=== PATIENT | male | born 1980 | race Caucasian/White ===

== ENCOUNTER 2017-12-06 12:55 | Emergency (ER) | payer MEDICAID, SELFPAY ==
[2017-12-06 12:57] VITALS: BP 122/86; PULSE 81; RESP 16; TEMP 37.1; O2SAT 95; BMI 29.0
--- NOTE | 2017-12-06 13:09 | EKG12_ITS ---
Test Reason : CP Blood Pressure : / mmHG Vent. Rate : 081 BPM Atrial Rate : 081 BPM P-R Int : 128 ms QRS Dur : 084 ms QT Int : 360 ms P-R-T Axes : 037 058 028 degrees QTc Int : 418 ms Normal sinus rhythm with sinus arrhythmia Normal ECG Confirmed by GAETANO ROBLES ([id number]), editor managing newspaper CHELLE DORSEY ([id number]) on 12/11/2017 1:43:41 PM Referred By: EMERITA Confirmed By:GAETANO ROBLES
--- NOTE | 2017-12-06 13:09 | RAD_ITS ---
STUDY: X-RAY CHEST REASON FOR EXAM: Male, 37 years old. Acute onset of chest pain. TECHNIQUE: Single AP portable view of the chest. COMPARISON: Comparison is made with prior study dated August 14, 2015. FINDINGS: EKG electrodes are seen. Mild increase in the markings at the left lung base suggestive of underlying atelectasis. There is no demonstrated pleural abnormality. Normal size heart. Normal mediastinum and jovanna. Normal visualized pulmonary arteries. Normal visualized aortic arch and descending thoracic aorta. Normal visualized thoracic spine. Normal visualized ribs, clavicles, and shoulders. There is no demonstrated abnormality of the visualized soft tissue structures of the upper abdomen. RAD/Chest 1 View (Portable) IMPRESSION: Mild increased linear markings at the left lung base suggestive of linear atelectasis. Electronically Signed: Dixon Golden MD at 14:01 EST Tel [phone], Service support ,
[2017-12-06 13:18] LABS: Absolute Lymphocyte Count 2.63 X10^3/ul (0.83-4.51); Absolute Neutrophil Count 6.7 X10^3/uL (2.0-7.7); Basophil# 0.04 X10^3/uL; Basophil% 0.4 % (0-1); Eosinophil# 0.19 X10^3/uL; Eosinophils% 1.8 % (0-5); Hematocrit 47.4 % (40-54); Hemoglobin 16.3 g/dl (13.0-16.5); Lymphocyte # 2.63 X10^3/ul (4.0); Lymphocyte % 24.9 % (19-41); Mean Corp Hgb Conc 34.4 g/gl (32-36); Mean Corpuscular Hgb 30.9 pg (27.0-32.0); Mean Corpuscular Volume 89.9 fL (80-94); Mean Platelet Vol. 9.6 fl (6.2-12.0); Monocyte# 0.93 X10^3/uL; Monocyte% 8.8 % (0-10); Neutrophil # 6.74 X10^3/uL (2.7-7.7); Neutrophil % 63.9 % (47-70); Platelet Count 218 K/mm3 (150-450); RBC Distribution Width CV 13.6 % (11.6-14.6); Red Blood Count 5.27 M/mm3 (4.6-6.2); White Blood Count 10.6 K/mm3 (4.4-11.0)
[2017-12-06 13:19] LABS: POSITIVE COUNT NO; POSITIVE DIFFERENTIAL NO; POSITIVE MORPHOLOGY NO
--- NOTE | 2017-12-06 13:22 | ED.VISSUMM ---
- ER Visit Summary Date of Service: 12/06/17 Chief Complaint: Cough, congestion and today left chest wall pain. History of Present Illness: The patient is a 37 M head cold. Last several days. Today developed left chest wall pain. With coughing. Denies any hemoptysis. He has had body sweats and sore throat. Denies any melena. No history of DVT or PE. No risk factors. No cardiac history in himself. He does have a half a pack a day smoking history and denies any significant family history of cardiac disease or clotting disorders. He had a negative stress test years ago. He has had no recent cardiac workup. No recent hospitalization or immobilization. Denies any leg pain or swelling. Physical Examination: Well appearing young male. Vital signs are stable afebrile. Pulse ox 95% on room air no signs of hypoxia. He is in no distress. H EENT exam nasal congestion otherwise unremarkable. Neck nontender no lymphadenopathy. Lungs clear to auscultation bilaterally. Dry cough. Heart regular rate and rhythm no murmur. Chest wall is reproducible left-sided chest wall pain. There is no ecchymosis or bruising. No subcu air or crepitance. No bony deformity. Abdomen is soft and nontender. No peritoneal signs. He is moving all 4 extremities. Neurovascular intact. Equal symmetrical radial pulses. Equal symmetrical director building strength. Dorsi plantar flexion. Calves are nontender without edema or cords. Back exam normal. Neurologically is awake and alert without focal motor deficits. Test Results: Shows no acute process. Linear atelectasis. Read both by myself the radiologist. CBC normal. BMP unremarkable. Normal gap. Troponin normal. EKG sinus rhythm rate 81 no acute signs of [place] or ischemia. Emergency Department Course and Treatment: Clinically the patient appears to have a viral URI. The chest pain and think is chest wall pain. He will undergo cardiac workup and my clinical suspicion is very low. Treatment Plan: Repeat exam patient is doing well at 1528. He still has reproducible chest wall pain. Clinically and historically I do not feel this to be cardiac. He is comfortable being discharged home. Disposition: Discharge Impression: Viral URI Acute chest pain secondary to left chest wall pain Tobacco abuse This note was generated with [employer] dictation software. It may contain incorrect words, spelling, and punctuation that were not noted in review of the chart prior to signing ED Disposition - Plan for ED Patient: Chief Complaint: Chest Pain Referrals: Bernard Sin III, MD [Primary Care Provider] -
--- NOTE | 2017-12-06 13:25 | ED.DCSUM_ITS ---
- ER Visit Summary Date of Service: 12/06/17 Chief Complaint: Cough, congestion and today left chest wall pain. History of Present Illness: The patient is a 37 M head cold. Last several days. Today developed left chest wall pain. With coughing. Denies any hemoptysis. He has had body sweats and sore throat. Denies any melena. No history of DVT or PE. No risk factors. No cardiac history in himself. He does have a half a pack a day smoking history and denies any significant family history of cardiac disease or clotting disorders. He had a negative stress test years ago. He has had no recent cardiac workup. No recent hospitalization or immobilization. Denies any leg pain or swelling. Physical Examination: Well appearing young male. Vital signs are stable afebrile. Pulse ox 95% on room air no signs of hypoxia. He is in no distress. H EENT exam nasal congestion otherwise unremarkable. Neck nontender no lymphadenopathy. Lungs clear to auscultation bilaterally. Dry cough. Heart regular rate and rhythm no murmur. Chest wall is reproducible left-sided chest wall pain. There is no ecchymosis or bruising. No subcu air or crepitance. No bony deformity. Abdomen is soft and nontender. No peritoneal signs. He is moving all 4 extremities. Neurovascular intact. Equal symmetrical radial pulses. Equal symmetrical skating rink manager strength. Dorsi plantar flexion. Calves are nontender without edema or cords. Back exam normal. Neurologically is awake and alert without focal motor deficits. Test Results: Shows no acute process. Linear atelectasis. Read both by myself the radiologist. CBC normal. BMP unremarkable. Normal gap. Troponin normal. EKG sinus rhythm rate 81 no acute signs of [place] or ischemia. Emergency Department Course and Treatment: Clinically the patient appears to have a viral URI. The chest pain and think is chest wall pain. He will undergo cardiac workup and my clinical suspicion is very low. Treatment Plan: Repeat exam patient is doing well at 1528. He still has reproducible chest wall pain. Clinically and historically I do not feel this to be cardiac. He is comfortable being discharged home. Disposition: Discharge Impression: Viral URI Acute chest pain secondary to left chest wall pain Tobacco abuse This note was generated with [employer] dictation software. It may contain incorrect words, spelling, and punctuation that were not noted in review of the chart prior to signing ED Disposition - Plan for ED Patient: Chief Complaint: Chest Pain Referrals: Bernard Sin III, MD [Primary Care Provider] -
[2017-12-06 13:30] LABS: Anion Gap 7 (5-15); BUN 14 mg/dL (7-18); BUN/Creat Ratio 15.1 RATIO (10-20); Calcium,Total 8.7 mg/dL (8.5-10.1); Chloride 108 mmol/L (98-107); Creatinine, Serum 0.92 mg/dL (0.70-1.30); EST Glomerular Filtration Rate 96 mL/min (>60); Est Glom Filt Rate - Afr Amer 117 mL/min (>60); Estimated Creatinine Clearance 90.27 ml/min; Glucose 104 mg/dL (74-106); Potassium 4.4 mmol/L (3.5-5.1); Sodium Level 140 mmol/L (136-145)
[2017-12-06 14:13] VITALS: BP 126/89; PULSE 83; RESP 16; O2SAT 97
[2017-12-06 15:04] VITALS: BP 117/83; PULSE 86; RESP 20; O2SAT 97
--- NOTE | 2017-12-06 15:35 | ED.DEP ---
ED Disposition - Plan for ED Patient: Disposition: Home or Assisted Living Chief Complaint: Chest Pain Instructions: ED Strain Chest Wall, ED URI Viral Referrals: Bernard Sin III, MD [Primary Care Provider] - 1 Week if not improving Additional Instructions: Motrin and Tylenol for your chest wall pain. Stop smoking. Follow-up with your doctor if not improving in 1 week.
[2017-12-06 15:54] VITALS: BP 131/69; PULSE 72; RESP 15; O2SAT 97
== END 2017-12-06 15:55 | disposition home or self-care (01) ==
PROVIDERS: Emergency Provider Emergency Medicine; Family Provider Family Medicine; PCP Family Medicine
DX: J06.9 Acute upper respiratory infection, unspecified (principal); R07.89 Other chest pain; Z72.0 Tobacco use
CPT/HCPCS: 71045; 80048; 84484; 85025; 93005; 99285; A4216

== ENCOUNTER 2018-11-25 11:52 | Emergency (ER) | payer SELFPAY ==
[2018-11-25 11:53] VITALS: BP 120/81; PULSE 80; RESP 24; TEMP 36.4; O2SAT 98; BMI 28.3
--- NOTE | 2018-11-25 12:02 | EKG12_ITS ---
Test Reason : CP Blood Pressure : / mmHG Vent. Rate : 077 BPM Atrial Rate : 077 BPM P-R Int : 132 ms QRS Dur : 084 ms QT Int : 366 ms P-R-T Axes : 043 063 033 degrees QTc Int : 414 ms Normal sinus rhythm Normal ECG Confirmed by ALBANIA HATFIELD, THAIS ([id number]), map editor CHELLE DORSEY ([id number]) on 11/29/2018 9:00:35 AM Referred By: EMERITA/EDWARD Confirmed By:THAIS LOVELACE MD
--- NOTE | 2018-11-25 12:03 | ED.VISSUMM ---
- ER Visit Summary Date of Service: 11/25/18 Chief Complaint: Chest pain History of Present Illness: The patient is a 38 M no significant past medical history. He has had a prior negative stress test. He is never had a cardiac catheterization. He has no known history of cardiac disease. No history of hypertension or high cholesterol. His direct family parents and siblings have not had cardiac disease. He had an aunt who he thinks had an TX at 62. He does smoke. 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 He had similar symptoms a year ago had a negative cardiac workup and was discharged home. He has had no recent travel or surgery. No hospitalization or immobilization. No leg pain or swelling. Not pleuritic. No hemoptysis. The pain is almost resolved. It began around 950. Physical Examination: Well-appearing middle-age male. Vital signs are stable. He is afebrile. Initial blood pressure is 120/81. His pulse ox is 98% on room air with no hypoxia. HEENT exam is unremarkable. Neck nontender without lymphadenopathy. Trachea midline. Lungs clear to auscultation bilaterally. Heart regular rate and rhythm no murmur. Chest wall nontender. No ecchymosis or bruising. No subcu air crepitance. Abdomen is soft and nontender. Normal bowel sounds without peritoneal signs. Patient is moving all 4 extremities. Calves are nontender without edema or cords. Back exam nontender. Neurologically is awake and alert with no focal motor deficits. Test Results: CBC normal. Chemistries normal. Troponin normal. EKG sinus rhythm rate of 77 no. No signs of TX or ischemia. Chest x-ray chronic changes no acute process read both by myself and the radiologist. Emergency Department Course and Treatment: Patient will undergo cardiac workup. My clinical suspicion is low. Repeat exam patient is doing well at 1511 and be discharged to home. Treatment Plan: Follow-up with his primary care physician. Disposition: Discharge Impression: Acute chest pain uncertain etiology History of tobacco abuse This note was generated with [employer] dictation software. It may contain incorrect words, spelling, and punctuation that were not noted in review of the chart prior to signing ED Disposition - Plan for ED Patient: Referrals: Bernard Sin III, MD [Primary Care Provider] -
--- NOTE | 2018-11-25 12:06 | ED.DCSUM_ITS ---
- ER Visit Summary Date of Service: 11/25/18 Chief Complaint: Chest pain History of Present Illness: The patient is a 38 M no significant past medical history. He has had a prior negative stress test. He is never had a cardiac catheterization. He has no known history of cardiac disease. No history of hy pertension or high cholesterol. His direct family parents and siblings have not had cardiac disease. He had an aunt who he thinks had an DC at 62. He does smoke. 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 He had similar symptoms a year ago had a negative cardiac workup and was discharged home. He has had no recent travel or surgery. No hospitalization or immobilization. No leg pain or swelling. Not pleuritic. No hemoptysis. The pain is almost resolved. It began around 950. Physical Examination: Well-appearing middle-age male. Vital signs are stable. He is afebrile. Initial blood pressure is 120/81. His pulse ox is 98% on room air with no hypoxia. HEENT exam is unremarkable. Neck nontender without lymphadenopathy. Trachea midline. Lungs clear to auscultation bilaterally. Heart regular rate and rhythm no murmur. Chest wall nontender. No ecchymosis or bruising. No subcu air crepitance. Abdomen is soft and nontender. Normal bowel sounds without peritoneal signs. Patient is moving all 4 extremities. Calves are nontender without edema or cords. Back exam nontender. Neurologically is awake and alert with no focal motor deficits. Test Results: CBC normal. Chemistries normal. Troponin normal. EKG sinus rhythm rate of 77 no. No signs of DC or ischemia. Chest x-ray chronic changes no acute process read both by myself and the radiologist. Emergency Department Course and Treatment: Patient will undergo cardiac workup. My clinical suspicion is low. Repeat exam patient is doing well at 1511 and be discharged to home. Treatment Plan: Follow-up with his primary care physician. Disposition: Discharge Impression: Acute chest pain uncertain etiology History of tobacco abuse This note was generated with [employer] software. It may contain incorrect words, spelling, and punctuation that were not noted in review of the chart prior to signing ED Disposition - Plan for ED Patient: Referrals: Bernard Sin III, MD [Primary Care Provider] -
--- NOTE | 2018-11-25 12:15 | RAD_ITS ---
STUDY: X-RAY CHEST REASON FOR EXAM: Male, 38 years old. Chest pain. TECHNIQUE: Single AP portable view of the chest. COMPARISON: Comparison is made with prior study dated December 06, 2017. FINDINGS: EKG electrodes are seen. Stable mild degree of increased markings at left lung base suggestive of scarring. There is no demonstrated pleural abnormality. Normal size heart. Normal mediastinum and jovanna. Normal visualized pulmonary arteries. Normal visualized aortic arch and descending thoracic aorta. There are degenerative changes of the visualized thoracic spine. Normal visualized ribs, clavicles, and shoulders. There is no demonstrated abnormality of the visualized soft tissue structures of the upper abdomen. RAD/Chest 1 View (Portable) IMPRESSION: Stable mild increased markings at the left lung base suggestive of linear scarring. Electronically Signed: Dixon Golden MD at 12:42 EST , Service support ,
[2018-11-25 12:23] LABS: Absolute Lymphocyte Count 2.54 X10^3/ul (0.83-4.51); Absolute Neutrophil Count 7.3 X10^3/uL (2.0-7.7); Basophil# 0.03 X10^3/uL; Basophil% 0.3 % (0-1); Eosinophil# 0.09 X10^3/uL; Eosinophils% 0.8 % (0-5); Hematocrit 48.2 % (40-54); Hemoglobin 16.6 g/dl (13.0-16.5); Lymphocyte # 2.54 X10^3/ul (4.0); Lymphocyte % 23.6 % (19-41); Mean Corp Hgb Conc 34.4 g/gl (32-36); Mean Corpuscular Hgb 31.3 pg (27.0-32.0); Mean Corpuscular Volume 90.8 fL (80-94); Mean Platelet Vol. 9.1 fl (6.2-12.0); Monocyte# 0.71 X10^3/uL; Monocyte% 6.6 % (0-10); Neutrophil # 7.33 X10^3/uL (2.7-7.7); Neutrophil % 68.3 % (47-70); POSITIVE COUNT NO; POSITIVE DIFFERENTIAL NO; POSITIVE MORPHOLOGY NO; Platelet Count 207 K/mm3 (150-450); RBC Distribution Width CV 13.1 % (11.6-14.6); RBC Distribution Width SD 42.9 fl (35.1-43.9); Red Blood Count 5.31 M/mm3 (4.6-6.2); White Blood Count 10.7 K/mm3 (4.4-11.0)
[2018-11-25 12:46] LABS: Anion Gap 10 (5-15); BUN 12 mg/dL (7-18); BUN/Creat Ratio 11.9 RATIO (10-20); Calcium,Total 8.7 mg/dL (8.5-10.1); Chloride 105 mmol/L (98-107); Creatinine, Serum 1.01 mg/dL (0.70-1.30); EST Glomerular Filtration Rate 87 mL/min (>60); Est Glom Filt Rate - Afr Amer 105 mL/min (>60); Estimated Creatinine Clearance 81.41 ml/min; Glucose 151 mg/dL (74-106); Potassium 3.6 mmol/L (3.5-5.1); Sodium Level 141 mmol/L (136-145)
[2018-11-25 13:01] VITALS: BP 123/76; PULSE 69; RESP 18; O2SAT 94
[2018-11-25 14:21] VITALS: BP 120/71; PULSE 65; RESP 15; O2SAT 95
--- NOTE | 2018-11-25 15:13 | ED.DEP ---
ED Disposition - Plan for ED Patient: Disposition: Home or Assisted Living Instructions: ED Chest Pain Atypical Unkn Cause Referrals: Bernard Sin III, MD [Primary Care Provider] - 3-5 Days Additional Instructions: Return if feeling worse. Follow-up with your primary care physician
[2018-11-25 15:21] VITALS: BP 126/74; PULSE 71; RESP 15; O2SAT 98
== END 2018-11-25 15:21 | disposition home or self-care (01) ==
PROVIDERS: Emergency Provider Emergency Medicine; Family Provider Family Medicine; PCP Family Medicine
DX: R07.9 Chest pain, unspecified (principal); F17.200 Nicotine dependence, unspecified, uncomplicated
CPT/HCPCS: 71045; 80048; 84484; 85025; 93005; 99285; J7030; A4216

== ENCOUNTER 2021-02-09 14:18 | Emergency (ER) | payer MEDICAID, SELFPAY ==
[2021-02-09 14:19] VITALS: BP 137/98; PULSE 74; RESP 16; TEMP 35.3; O2SAT 97; BMI 26.7
--- NOTE | 2021-02-09 14:32 | ED.RN ---
pain to rt quad since sunday. [facility] and sent here.
--- NOTE | 2021-02-09 14:37 | CT_ITS ---
STUDY: CT ABDOMEN AND PELVIS WITH CONTRAST REASON FOR EXAM: Male, 40 years old. Abdominal pain. History of ulcerative colitis RADIATION DOSAGE (If Supplied By Facility): CTDIvol = ( 15.76 ) mGy, DLP = ( 748.96 ) mGycm TECHNIQUE: Transaxial images were obtained from the dome of the diaphragm to the symphysis pubis with oral contrast. 100 ml of ISOVUE-300 contrast was administered. Sagittal and coronal images were reconstructed. Individualized dose optimization techniques were used for this CT. COMPARISON: 01/10/15 FINDINGS: There is atelectasis at the lung bases. The visualized portions of the heart and pericardium are within normal limits. There are no calcified gallstones present. The liver is within normal limits. There are no suspicious hepatic lesions. The spleen is normal in size. The pancreas is within normal limits. The adrenal glands are within normal limits. There are no renal or ureteral stones. There is no hydronephrosis. There are no focal renal lesions. Normal visualized stomach. There is no bowel obstruction or inflammation. The appendix is visualized and appears normal. The aorta is normal in caliber. There is no abdominal or pelvic free air, free fluid, fluid collection or lymphadenopathy. There are no destructive osseous lesions. CT/Abdomen/Pelvis WITH Contrast IMPRESSION: Unremarkable contrast-enhanced CT of the abdomen and pelvis. Electronically Signed: Syd Moffett MD at 16:30 EDT Tel , Service support ,
--- NOTE | 2021-02-09 14:46 | ED.VIS.GI ---
HPI HPI - GI History of Present Illness Chief Complaint: Abd Pain Informant: patient Abdominal Pain/Flank Pain Onset: Days (Onset Sunday evening) Context: Sudden Onset Timing: Continuous Quality: Aching Location: RUQ and RLQ Current Severity: Moderate Maximum Severity: Severe Worsened by: - (Upright position and walking) Relieved by: Nothing Nausea/Vomiting/Emesis GI Symptom: Positive for Nausea and Vomiting (Vomited once on Sunday) Severity: Mild Diarrhea/Melena/Hematochezia GI Symptom: Positive for Diarrhea (1 loose chunky stool this afternoon) Onset: Today Stool Quality: Positive for Loose Severity: Mild Associated Symptoms Associated Symptoms: Positive for Dysuria; Negative for Frequency and Hematuria Narrative Narrative: Patient is a 40-year-old male with history of ulcerative colitis diagnosed in 2002. He was under the care of Dr. Velez at the time. He has seen Dr. Christiano Dominguez. He did have colonoscopy with polypectomy. The polyps were reportedly benign. He reports because of right-sided abdominal pain that started on Sunday. The pain has been constant. The pain started abruptly. It is described as discomfort. The pain is made worse with upright position and walking. Nothing alleviates the pain. There was one episode of vomiting on Sunday and one episode of loose stool today. He has had continuous nausea. He noted mucus in the stool today. There was no blood. The stool was brown in color. He also reported dysuria x1. He denies hematuria or urgency. He denies history of renal ureterolithiasis. He denies joint pain or swelling. He denies myalgias. He denies fever or chills. He does report night sweats since Sunday. He reports no weight loss. He denies rash. He denies orthostatic symptoms. He denies cardiorespiratory symptoms. Prior similar symptoms: Yes (2002 diagnosed with ulcerative colitis) Recent Illness/Hospitalization: No [facility] Medical History (Updated 02/09/21 @ 19:[address] Chris Valles MD) Anxiety Colitis determined by colorectal biopsy Colorectal polyps GERD (gastroesophageal reflux disease) Ulcerative colitis Home Medications omeprazole 40 mg PO DAILY 05/17/14 [History Last Taken 12/05/17 40 MG] dicyclomine 20 mg PO TIDAC #20 capsule 02/09/21 [Rx Last Taken Unknown] fluoxetine [Prozac] 20 mg PO DAILY 02/09/21 [History Last Taken Unknown] Allergy/AdvReac Type Severity Reaction Status Date / Time nickel Allergy Rash Verified 02/09/21 14:20 Social History Smoking Status: Current every day smoker ROS ROS ED Constitutional Constitutional ED: Reports sweats; Denies fever(s), subjective or weight loss ENT ENT ED: Denies ear pain, rhinorrhea or sore throat Cardiovascular Cardiovascular: Denies chest pain or palpitations Respiratory/Chest Respiratory/Chest: Denies cough, dyspnea or dyspnea on exertion Gastrointestinal Gastrointestinal: Reports abdominal pain, diarrhea, nausea and vomiting; Denies constipation or melena Genitourinary Genitourinary ED: Reports dysuria; Denies hematuria or urinary frequency Musculoskeletal Musculoskeletal: Denies arthralgias, back pain, myalgias or neck pain Integumentary Denies Abrasions or rash Neurologic Neurologic: Denies headache(s) or weakness Psychiatric Psychiatric: Denies anxiety or depression Endocrine Endocrinology: Denies polydipsia or polyuria Hematologic/Lymphatic Hematologic/Lymphatic: Denies easy bleeding or easy bruising EXAM Physical Exam Const Vital Signs: 02/09/21 14:19 02/09/21 17:46 Temperature 95.5 F L Temperature Source Temporal Pulse Rate 74 78 Respiratory Rate 16 16 Blood Pressure 137/98 H 123/63 H Blood Pressure Mean 111 83 Pulse Ox 97 96 Oxygen Delivery Method Room Air Room Air Positive well nourished and well developed General Appearance ED: well developed; Negative for pallor HEENT Reports moist mucous membranes normocephalic and atraumatic Eyes PERRL and EOMs intact bilaterally General Eye ED: Negative for pale conjunctiva or scleral icterus Neck no lymphadenopathy, supple and no JVD General: Negative for tenderness Chest Wall Chest Narrative: Chest wall is normal. Resp normal respiratory effort and clear to auscultation bilaterally Cardio regular rate, regular rhythm, S1 normal heart sound, S2 normal heart sound and no murmurs GI no masses; Negative for non-tender or non-distended GI Narrative: There is an umbilical scar noted. He states he had a a hernia that was repaired. Inspection: abdominal distention Auscultation: hypoactive bowel sounds; Negative for normoactive bowel sounds Palpation: soft, tender and guarding; Negative for rigid or rebound tenderness present Back/Spine no CVA tenderness Cervical Spine: Negative for cervical spine tenderness Thoracic Spine / Upper Back: Negative for thoracic spinal tenderness Lumbar Spine / Lower Back: Negative for lumbar spinal tenderness Extremity full ROM General Extremety ED: Negative for edema or tenderness General Extremity: Negative for edema Neuro CN's II-XII intact bilaterally and no sensory deficits noted Sensorium / Orientation: alert, oriented to person and oriented to place; Negative for oriented to time Motor Exam: strength 5/5 throughout Psych mental status grossly normal and thought process normal Skin no wounds General Skin Exam: Negative for jaundice or pallor Lesions: no lesions Rashes: no rashes MDM MDM MDM Narrative Medical decision making narrative: With history of ulcer colitis, prior polypectomy and no follow-up 3 years with significant abdominal pain need to evaluate for exacerbation of ulcerative colitis versus diverticulitis versus appendicitis since he has significant pain lateral McBurney's point. Will establish an IV and administer 1 L of normal saline wide open. Appropriate blood work was ordered as well as CT of the abdomen. Laboratory results and CAT scan of the abdomen are all unremarkable. Patient was discharged to home. He was informed the cause of his pain is unknown. He was instructed to follow-up with his primary care doctor. Lab Data Labs: Laboratory Results - last 24 hr 02/09/21 02/09/21 02/09/21 14:45 14:45 14:55 WBC 10.6 RBC 5.23 Hgb 16.1 Hct 47.3 MCV 90.4 MCH 30.8 MCHC 34.0 RDW Std Deviation 43.8 RDW Coeff of Mihir 13.1 Plt Count 229 MPV 8.9 Immature Gran % (Auto) 0.500 Neut % (Auto) 62.0 Lymph % (Auto) 28.5 [place] % (Auto) 7.8 Eos % (Auto) 0.8 Baso % (Auto) 0.4 Absolute Neuts (auto) 6.6 Absolute Lymphs (auto) 3.03 Nucleated RBC % 0 Sodium 138 Potassium 4.1 Chloride 107 Carbon Dioxide 26.0 Anion Gap 5 BUN 12 Creatinine 0.86 Estim Creat Clear Calc 93.70 Est GFR (MDRD) Af Amer 125 Est GFR (MDRD) Non-Af 104 BUN/Creatinine Ratio 14.0 Glucose 96 Lactic Acid Calcium 8.9 Urine Color Yellow Urine Clarity Sl. Cloudy Urine pH 6.5 Ur Specific [place] 1.010 Urine Protein Negative Urine Glucose (UA) Normal Urine Ketones 5 H Urine Occult Blood Negative Urine Nitrite Negative Urine Bilirubin Negative Urine Urobilinogen Normal Ur Leukocyte Esterase 25 H Urine RBC 0 SEEN Urine WBC 0-5 SEEN Ur Squamous Epith Cells 0-5 SEEN Urine Bacteria 1+ Urine Mucus 0 SEEN 02/09/21 14:55 WBC RBC Hgb Hct MCV MCH MCHC RDW Std Deviation RDW Coeff of Mihir Plt Count MPV Immature Gran % (Auto) Neut % (Auto) Lymph % (Auto) [place] % (Auto) Eos % (Auto) Baso % (Auto) Absolute Neuts (auto) Absolute Lymphs (auto) Nucleated RBC % Sodium Potassium Chloride Carbon Dioxide Anion Gap BUN Creatinine Estim Creat Clear Calc Est GFR (MDRD) Af Amer Est GFR (MDRD) Non-Af BUN/Creatinine Ratio Glucose Lactic Acid 0.6 Calcium Urine Color Urine Clarity Urine pH Ur Specific [place] Urine Protein Urine Glucose (UA) Urine Ketones Urine Occult Blood Urine Nitrite Urine Bilirubin Urine Urobilinogen Ur Leukocyte Esterase Urine RBC Urine WBC Ur Squamous Epith Cells Urine Bacteria Urine Mucus Radiography Diagnostic Testing: Radiology Impression Abdomen/Pelvis CT 02/09/21 14:37 IMPRESSION: Unremarkable contrast-enhanced CT of the abdomen and pelvis. Electronically Signed: Syd Moffett MD at 16:30 EDT Tel , Service support , Discharge Plan Triage Chief Complaint: Abd Pain ED Provider: Chris Valles Dx/Rx/DC Orders Clinical Impression: Abdominal pain of unknown etiology Instructions: ED Unknown Causes of Abdominal ... Prescriptions: New dicyclomine 10 MG capsule 20 mg PO TIDAC Qty: 20 RF: 0 No Action omeprazole 20 MG capsule 40 mg PO DAILY RF: 0 fluoxetine [Prozac] 20 mg Capsule 20 mg PO DAILY RF: 0 Primary Care Provider: Bernard Sin III Referrals: Bernard Sin III, MD [Primary Care Provider] - Disposition Disposition: Home, self care
[2021-02-09 14:49] LABS: Absolute Lymphocyte Count 3.03 X10^3/uL (0.83-4.51); Absolute Neutrophil Count 6.6 X10^3/uL (2.0-7.7); Basophil# 0.04 X10^3/uL; Basophil% 0.4 % (0-1); Eosinophil# 0.09 X10^3/uL; Eosinophils% 0.8 % (0-5); Hematocrit 47.3 % (40-54); Hemoglobin 16.1 g/dL (13.0-16.5); Lymphocyte # 3.03 X10^3/ul (0.83-4.51); Lymphocyte % 28.5 % (19-41); Mean Corpuscular Hgb 30.8 pg (27.0-32.0); Mean Corpuscular Volume 90.4 fL (80-94); Mean Platelet Vol. 8.9 fl (6.2-12.0); Monocyte# 0.83 X10^3/uL; Monocyte% 7.8 % (0-10); NRBC Flagged by Analyzer 0 % (0-5); Platelet Count 229 K/mm3 (150-450); RBC Distribution Width CV 13.1 % (11.6-14.6); RBC Distribution Width SD 43.8 fl (35.1-43.9); Red Blood Count 5.23 M/mm3 (4.6-6.2); White Blood Count 10.6 K/mm3 (4.4-11.0)
[2021-02-09] MEDS: 0.9% Normal Saline 1,000 ML 1000 ML IV (14:52)
[2021-02-09] MEDS: Ondansetron 4 MG/2 ML Vial IV (14:52)
[2021-02-09 15:03] LABS: Anion Gap 5 (5-15); BUN 12 mg/dL (7-18); Calcium,Total 8.9 mg/dL (8.5-10.1); Chloride 107 mmol/L (98-107); Creatinine, Serum 0.86 mg/dL (0.70-1.30); EST Glomerular Filtration Rate 104 mL/min (>60); Est Glom Filt Rate - Afr Amer 125 mL/min (>60); Glucose 96 mg/dL (74-106); Potassium 4.1 mmol/L (3.5-5.1); Sodium Level 138 mmol/L (136-145)
[2021-02-09 15:06] LABS: Mucous, Urine 0 SEEN /hpf (<or=2+); Red Blood Cells-Urine 0 SEEN /hpf (0-5)
[2021-02-09 15:15] LABS: Color, Urine Yellow (Yellow); Glucose, Dipstick Normal (Normal); Ketone-Dipstick 5 mg/dl (Negative); Leukocyte Esterase-Dipstick 25 /ul (Negative); Nitrite-Dipstick Negative (Negative); Occult Blood-Urine Negative /ul (Negative); Protein-Dipstick Negative (Negative); Urine Bilirubin Dipstick Negative (Negative); Urine Clarity Sl. Cloudy (Clear); Urine Urobilinogen Normal (Normal); Urine pH 6.5 (5.0 - 8.0)
[2021-02-09 15:23] LABS: Bacteria 1+ /hpf (None Seen); Squamous Epithelial Cells - UA 0-5 SEEN /hpf (0-5); White Blood Cells 0-5 SEEN /hpf (0-5)
[2021-02-09 15:42] LABS: Lactic Acid 0.6 mmol/L (0.4-1.9)
[2021-02-09 17:46] VITALS: BP 123/63; PULSE 78; RESP 16; O2SAT 96
== END 2021-02-09 19:35 | disposition home or self-care (01) ==
PROVIDERS: Emergency Provider Emergency Medicine; PCP Family Medicine
DX: R10.9 Unspecified abdominal pain (principal); F41.9 Anxiety disorder, unspecified; K21.9 Gastro-esophageal reflux disease without esophagitis; F17.200 Nicotine dependence, unspecified, uncomplicated; Z79.899 Other long term (current) drug therapy; Z87.19 Personal history of other diseases of the digestive system
CPT/HCPCS: 74177; 80048; 81001; 83605; 85025; 96361; 96374; 99283; J7030; Q9967; A4216; J2405

== ENCOUNTER 2022-06-06 19:14 | Emergency (ER) | payer MEDICAID, SELFPAY ==
[2022-06-06 19:15] VITALS: BP 141/96; PULSE 85; RESP 14; TEMP 35.8; O2SAT 98; BMI 28.4
[2022-06-06 19:49] LABS: Bacteria 0 SEEN /hpf (None Seen); Mucous, Urine 0 SEEN /hpf (<or=2+); Red Blood Cells-Urine 0 SEEN /hpf (0-5); Squamous Epithelial Cells - UA 0 SEEN /hpf (0-5); White Blood Cells 0 SEEN /hpf (0-5)
[2022-06-06 19:50] LABS: Absolute Lymphocyte Count 3.82 X10^3/uL (0.83-4.51); Absolute Neutrophil Count 5.3 X10^3/uL (2.0-7.7); Basophil# 0.04 X10^3/uL; Basophil% 0.4 % (0-1); Eosinophil# 0.29 X10^3/uL; Eosinophils% 2.8 % (0-5); Hematocrit 48.2 % (40-54); Hemoglobin 16.4 g/dL (13.0-16.5); Lymphocyte # 3.82 X10^3/ul (0.83-4.51); Lymphocyte % 36.8 % (19-41); Mean Corpuscular Hgb 30.6 pg (27.0-32.0); Mean Corpuscular Volume 89.9 fL (80-94); Mean Platelet Vol. 9.2 fl (6.2-12.0); Monocyte# 0.86 X10^3/uL; Monocyte% 8.3 % (0-10); NRBC Flagged by Analyzer 0 % (0-5); Neutrophil # 5.33 X10^3/uL (2.7-7.7); Neutrophil % 51.4 % (47-70); Platelet Count 227 K/mm3 (150-450); RBC Distribution Width CV 13.2 % (11.6-14.6); RBC Distribution Width SD 43.3 fl (35.1-43.9); Red Blood Count 5.36 M/mm3 (4.6-6.2); White Blood Count 10.4 K/mm3 (4.4-11.0)
[2022-06-06 19:53] LABS: Glucose, Dipstick Normal (Normal); Ketone-Dipstick Negative (Negative); Leukocyte Esterase-Dipstick Negative /ul (Negative); Nitrite-Dipstick Negative (Negative); Occult Blood-Urine Negative /ul (Negative); Protein-Dipstick Negative (Negative); Urine Bilirubin Dipstick Negative (Negative); Urine Urobilinogen Normal (Normal)
[2022-06-06 20:00] LABS: Color, Urine Yellow (Yellow); Urine Clarity Clear (Clear)
[2022-06-06 20:05] LABS: Anion Gap 6 (5-15); BUN 15 mg/dL (7-18); BUN/Creat Ratio 13.8 RATIO (10-20); Calcium,Total 9.4 mg/dL (8.5-10.1); Chloride 106 mmol/L (98-107); Creatinine, Serum 1.09 mg/dL (0.70-1.30); EST Glomerular Filtration Rate 78 mL/min (>60); Est Glom Filt Rate - Afr Amer 94 mL/min (>60); Estimated Creatinine Clearance 72.42 ml/min; Glucose 101 mg/dL (74-106); Potassium 4.2 mmol/L (3.5-5.1); Sodium Level 138 mmol/L (136-145)
--- NOTE | 2022-06-06 21:00 | CT_ITS ---
STUDY: CT ABDOMEN AND PELVIS WITH CONTRAST REASON FOR EXAM: Male, 42 years old. RLQ pain RADIATION DOSAGE (If Supplied By Facility): CTDIvol = ( 16.17 ) mGy, DLP = ( 801.01 ) mGycm TECHNIQUE: Transaxial images were obtained from the dome of the diaphragm to the symphysis pubis without oral contrast. IV 100mL Isovue-370 was administered. Sagittal and coronal images were reconstructed. Individualized dose optimization techniques were used for this CT. COMPARISON: 02/09/2021 FINDINGS: The visualized lung bases are unremarkable. The visualized portions of the heart are within normal limits. Normal liver. Normal gallbladder and extrahepatic biliary system. Normal spleen. Normal pancreas. Normal bilateral adrenal glands. Normal right kidney. Normal left kidney. Normal visualized stomach. Normal small intestine. Normal colon. The appendix is visualized and appears normal. Normal abdominal aorta. Normal inferior vena cava. Normal retroperitoneum. Normal urinary bladder. Normal abdominal wall. Lumbar spine demonstrates minor spondylosis CT/Abdomen/Pelvis W IV Cont ONLY IMPRESSION: No acute abnormalities within the abdomen or pelvis Electronically Signed: Jeremie Dey MD at 22:07 EDT ,
--- NOTE | 2022-06-06 21:00 | EDS_ITS ---
HPI History of Present Illness Chief Complaint: Abd Pain Narrative Narrative: Patient presents with about 5 days of right lower quadrant pain. He has had some nausea but has never actually vomited. He does not have back or flank pain. No urinary symptoms. He is still eating. He does not think he has had fevers or chills. Patient does have a history of ulcerative colitis. He was diagnosed about 15 years ago. But he has not been on any meds for 3 or 4 years. He was on Asacol and one other. He is not on any Biologics. He is not on steroids. He is on omeprazole now. He is not having diarrhea and he is not having blood in the stool though. Pressing on the area makes it worse. Nothing really makes it better. [facility] Medical History Anxiety Colitis determined by colorectal biopsy Colorectal polyps GERD (gastroesophageal reflux disease) Ulcerative colitis Home Medications omeprazole 20 mg capsule,delayed release 40 mg PO DAILY GERD 05/17/14 [History Last Taken 12/05/17 40 MG] dicyclomine 10 mg capsule 20 mg PO TIDAC #20 CAPSULES 02/09/21 [Rx Last Taken Unknown] fluoxetine 20 mg capsule (Prozac) 20 mg PO DAILY 02/09/21 [History Last Taken Unknown] dicyclomine 20 mg tablet 20 mg PO TID PRN cramps #10 tabs 06/06/22 [Rx Last Taken Unknown] ondansetron 4 mg disintegrating tablet 4 mg PO Q8H PRN nausea and vomiting #10 tabs 06/06/22 [Rx Last Taken Unknown] Allergy/AdvReac Type Severity Reaction Status Date / Time nickel Allergy Rash Verified 06/06/22 19:15 Social History Smoking Status: Current every day smoker tobacco type: cigarettes ROS ROS ED Constitutional Constitutional ED: Denies chills, fever(s) or subjective Eyes Eyes: Denies change in vision ENT ENT ED: Denies rhinorrhea or sore throat Cardiovascular Cardiovascular: Denies chest pain or palpitations Respiratory/Chest Respiratory/Chest: Denies cough Gastrointestinal Gastrointestinal: Reports abdominal pain and nausea; Denies constipation, diarrhea, melena or vomiting Genitourinary Genitourinary ED: Denies dysuria, hematuria or urinary frequency Musculoskeletal Musculoskeletal: Denies back pain or neck pain Integumentary Denies rash Neurologic Neurologic: Denies paresthesias or weakness Psychiatric Psychiatric: Denies anxiety Endocrine Endocrinology: Denies polydipsia or polyuria Hematologic/Lymphatic Hematologic/Lymphatic: Denies easy bleeding or easy bruising Allergic/Immunologic Allergic/Immunologic ED: Denies urticaria EXAM Physical Exam Const Vital Signs: 06/06/22 19:15 Temperature 96.4 F L Temperature Source Temporal Pulse Rate 85 Respiratory Rate 14 Blood Pressure 141/96 H Blood Pressure Mean 111 Pulse Ox 98 Oxygen Delivery Method Room Air Positive well developed General Appearance ED: well developed HEENT Reports dry mucous membranes HEENT Narrative: Mildly dry mucous membrane Mouth ED: Yes dry mucous membranes Mouth: dry mucous membranes Eyes General Eye ED: Negative for scleral icterus Neck no lymphadenopathy Resp normal respiratory effort and clear to auscultation bilaterally Auscultation: Negative for rales, rhonchi or wheezes Cardio regular rate, regular rhythm and no murmurs GI normal to inspection, nondistended, normoactive bowel sounds GI Narrative: Abdomen is thin on tender. He does have well-healed scar from umbilical hernia. No actual hernias felt there. No inguinal hernia. He does have some tenderness in the right lower quadrant. No rebound or guarding. No mass felt. Back/Spine no CVA tenderness Extremity normal to inspection Neuro Sensorium / Orientation: alert Psych mental status grossly normal Skin no rashes or lesions noted MDM MDM MDM Narrative Medical decision making narrative: Patient's blood work shows a normal CBC. Normal electrolytes. His urine is normal. CAT scan shows no acute abnormality within the abdomen or pelvis. I do not want to treat the patient with steroids as I have no indication of this is his colitis acting up. We will refer him to GI. I will write for some meds for nausea and cramping. We discussed reasons to return. He is not having any problems eating or drinking. Lab Data Attestation: I reviewed the patient's lab results. Labs: Laboratory Results - last 24 hr 06/06/22 06/06/22 06/06/22 19:42 19:42 19:45 WBC 10.4 RBC 5.36 Hgb 16.4 Hct 48.2 MCV 89.9 MCH 30.6 MCHC 34.0 RDW Std Deviation 43.3 RDW Coeff of Mihir 13.2 Plt Count 227 MPV 9.2 Immature Gran % (Auto) 0.300 Neut % (Auto) 51.4 Lymph % (Auto) 36.8 [place] % (Auto) 8.3 Eos % (Auto) 2.8 Baso % (Auto) 0.4 Absolute Neuts (auto) 5.3 Absolute Lymphs (auto) 3.82 Nucleated RBC % 0 Sodium 138 Potassium 4.2 Chloride 106 Carbon Dioxide 26.0 Anion Gap 6 BUN 15 Creatinine 1.09 Estim Creat Clear Calc 72.42 Est GFR (MDRD) Af Amer 94 Est GFR (MDRD) Non-Af 78 BUN/Creatinine Ratio 13.8 Glucose 101 Calcium 9.4 Urine Color Yellow Urine Clarity Clear Urine pH 7.0 Ur Specific [place] 1.010 Urine Protein Negative Urine Glucose (UA) Normal Urine Ketones Negative Urine Occult Blood Negative Urine Nitrite Negative Urine Bilirubin Negative Urine Urobilinogen Normal Ur Leukocyte Esterase Negative Urine RBC 0 SEEN Urine WBC 0 SEEN Ur Squamous Epith Cells 0 SEEN Urine Bacteria 0 SEEN Urine Mucus 0 SEEN Radiography Diagnostic Testing: Clinical Impression(s) from Imaging Studies Abdomen/Pelvis CT 06/06/22 21:00 IMPRESSION: No acute abnormalities within the abdomen or pelvis Electronically Signed: Jeremie Dey MD at 22:07 EDT , Discharge Plan Triage Chief Complaint: Abd Pain ED Provider: Jorge Samson Dx/Rx/DC Orders Clinical Impression: Abdominal pain Instructions: ED Abdominal Pain Unkn Cause Male... Prescriptions: New dicyclomine 20 mg tablet 20 mg PO TID PRN (Reason: cramps) Qty: 10 0RF ondansetron 4 mg tablet,disintegrating 4 mg PO Q8H PRN (Reason: nausea and vomiting) Qty: 10 0RF No Action omeprazole 20 MG capsule 40 mg PO DAILY fluoxetine [Prozac] 20 mg Capsule 20 mg PO DAILY dicyclomine 10 MG capsule 20 mg PO TIDAC Qty: 20 0RF Primary Care Provider: Jude Veras Referrals: Amadeo,DO Qamar [Med Staff - Active Staff] - As soon as possible Jude Veras MD [Primary Care Provider] - Disposition Disposition: Home, Self Care
[2022-06-06] MEDS: 0.9% Normal Saline 1,000 ML 1000 ML IV (21:06)
[2022-06-06] MEDS: Morphine 4 MG/ML Syringe IV (21:06)
[2022-06-06] MEDS: Ondansetron 4 MG/2 ML Vial IV (21:06)
[2022-06-06 22:59] VITALS: PULSE 88; RESP 18
== END 2022-06-06 23:00 | disposition home or self-care (01) ==
PROVIDERS: Emergency Provider Emergency Medicine; PCP Internal Medicine; Visit Provider Emergency Medicine
DX: R10.31 Right lower quadrant pain (principal); R11.0 Nausea; F17.210 Nicotine dependence, cigarettes, uncomplicated; K21.9 Gastro-esophageal reflux disease without esophagitis
CPT/HCPCS: 74177; 80048; 81001; 85025; 99283; J7030; Q9967; A4216; J2405

== ENCOUNTER 2022-09-12 17:52 | Emergency (ER) | payer MEDICAID, SELFPAY ==
[2022-09-12 17:54] VITALS: BP 145/93; PULSE 105; RESP 17; TEMP 36.8; O2SAT 98; BMI 27.9
--- NOTE | 2022-09-12 18:38 | EX.ED.DYSGE1 ---
HPI History of Present Illness Chief Complaint: Cold Sx Informant: patient Onset/Context/Timing Onset: Today Context: Gradual Onset Narrative Narrative: Patient reports waking this morning with cold symptoms. He complains of body aches with sore throat and cough. He is not really bringing up much sputum. He had subjective fever at home. He complains of a focal sharp pain to the left ribs. He can put his finger on the exact spot. He states he has been hurting in that spot all day. He denies history of asthma or COPD but states has been wheezing all day. He has been a long-term smoker. He does have a history of ulcerative colitis but is not currently on any immune suppressants. He did not receive the influenza vaccine. [facility] Medical History Anxiety Colitis determined by colorectal biopsy Colorectal polyps GERD (gastroesophageal reflux disease) Ulcerative colitis Home Medications omeprazole 20 mg capsule,delayed release 40 mg PO DAILY GERD 05/17/14 [History Last Taken 12/05/17 40 MG] ondansetron 4 mg disintegrating tablet 4 mg PO Q8H PRN nausea and vomiting #10 tabs 06/06/22 [Rx Last Taken Unknown] prednisone 20 mg tablet 40 mg PO DAILY #8 tabs 09/12/22 [Rx Last Taken Unknown] Allergy/AdvReac Type Severity Reaction Status Date / Time nickel Allergy Rash Verified 09/12/22 17:55 Social History Smoking Status: Current every day smoker tobacco type: cigarettes ROS ROS ED Constitutional Constitutional ED: Reports chills, fever(s) and subjective Eyes Eyes: Denies change in vision or discharge from eye(s) ENT ENT ED: Reports sore throat and other Details: Congestion ; Denies discharge from eye(s) or rhinorrhea Cardiovascular Cardiovascular: Reports chest pain; Denies palpitations Respiratory/Chest Respiratory/Chest: Reports cough, dyspnea and other Details: Wheezing Gastrointestinal Gastrointestinal: Denies abdominal pain, diarrhea, nausea or vomiting Genitourinary Genitourinary ED: Denies difficulty urinating or dysuria Musculoskeletal Musculoskeletal: Reports myalgias; Denies back pain or extremity pain Integumentary Denies Abrasions or rash Neurologic Neurologic: Denies headache(s) or weakness Psychiatric Psychiatric: Denies anxiety or depression Allergic/Immunologic Allergic/Immunologic ED: Denies lip swelling or urticaria EXAM Physical Exam Const Vital Signs: 09/12/22 17:54 09/12/22 18:31 09/12/22 18:56 Temperature 98.2 F 98.6 F Temperature Source Temporal Oral Pulse Rate 105 H 108 H Respiratory Rate 17 29 H Respiratory Effort Normal Respiratory Depth Normal Respiratory Pattern Irregular Blood Pressure 145/93 H 160/93 H Blood Pressure Mean 110 115 Pulse Ox 98 97 Oxygen Delivery Method Room Air Room Air 09/12/22 18:58 09/12/22 18:50 09/12/22 20:04 Temperature 99.4 F H Temperature Source Oral Pulse Rate 107 H 108 H 111 H Respiratory Rate 28 H 20 H 21 H Respiratory Effort Respiratory Depth Respiratory Pattern Blood Pressure 160/93 H 145/76 H Blood Pressure Mean 115 99 Pulse Ox 95 91 Oxygen Delivery Method Room Air 09/12/22 20:57 Temperature Temperature Source Pulse Rate 107 H Respiratory Rate 22 H Respiratory Effort Respiratory Depth Respiratory Pattern Blood Pressure 140/73 H Blood Pressure Mean 95 Pulse Ox 92 Oxygen Delivery Method Room Air Positive well nourished and well developed General Appearance ED: well developed HEENT Reports normocephalic and head/scalp atraumatic Eyes PERRL and EOMs intact bilaterally Neck supple Chest Wall inspection of chest normal and palpation of chest normal Resp normal respiratory effort Resp Narrative: Bilateral expiratory wheezes. Cardio regular rate and regular rhythm GI normal to inspection, nondistended, normoactive bowel sounds Palpation: soft Extremity normal to inspection Neuro oriented x3 and no sensory deficits noted Sensorium / Orientation: alert Motor Exam: strength 5/5 throughout Psych mental status grossly normal Skin no rashes or lesions noted MDM MDM MDM Narrative Medical decision making narrative: Patient given aerosol treatments here along with Solu-Medrol. Lab work obtained along with chest x-ray. EKG ordered. Swab for COVID and influenza obtained. Lab Data Attestation: I reviewed the patient's lab results. Labs: Laboratory Results - last 24 hr 09/12/22 09/12/22 18:45 18:45 WBC 11.4 H RBC 5.40 Hgb 16.4 Hct 48.8 MCV 90.4 MCH 30.4 MCHC 33.6 RDW Std Deviation 43.1 RDW Coeff of Mihir 13.1 Plt Count 244 MPV 9.2 Immature Gran % (Auto) 0.400 Neut % (Auto) 74.6 H Lymph % (Auto) 14.6 L [place] % (Auto) 9.1 Eos % (Auto) 0.9 Baso % (Auto) 0.4 Absolute Neuts (auto) 8.5 H Absolute Lymphs (auto) 1.67 Nucleated RBC % 0 Sodium 141 Potassium 3.5 Chloride 105 Carbon Dioxide 28.0 Anion Gap 8 BUN 11 Creatinine 1.04 Estim Creat Clear Calc 75.90 Est GFR (MDRD) Af Amer 100 Est GFR (MDRD) Non-Af 82 BUN/Creatinine Ratio 10.6 Glucose 118 H Calcium 9.1 Troponin I High Sens 3 Radiography Chest X-Ray - ED: 1 View, Read by ED Physician and No Infiltrates Diagnostic Testing: Clinical Impression(s) from Imaging Studies Chest X-Ray 09/12/22 19:04 IMPRESSION: Degenerative changes, as described above. No demonstrated acute cardiopulmonary process. Electronically Signed: Tristan BoboDO at 19:21 EST Reading Location ID and State: [address] [place] [address] Tel [phone], Service support , EKG Initial EKG: Attestation: I personally reviewed and interpreted this EKG as follows: Interpretation: Sinus Rhythm (Sinus at 95 with no acute ischemia.) Treatment and Re-Evaluation Narrative: On repeat evaluation patient still complains of focal chest pain but denies any further wheezing. Lab work reviewed with patient and spouse at bedside. White count is slightly elevated 11.4. Chemistry studies unremarkable. Troponin is normal at 3. Chest x-ray per my interpretation shows no focal infiltrate. Radiology interpretation is reviewed and agrees. Swabs for COVID and influenza are negative at this time. I did advise the patient that because today is the first day of illness I do wonder if he still has 1 of these illnesses but the viral count is not high enough to test positive. I did encourage him to be retested in a couple days if he continues to have symptoms. He will be given albuterol inhaler here and I will write steroids for him at home. He denies history of asthma or COPD but is a longtime smoker. Discharge Plan Triage Chief Complaint: Cold Sx ED Provider: Ruby Louis Dx/Rx/DC Orders Clinical Impression: Viral syndrome Instructions: ED Viral Syndrome (Adult) Prescriptions: New prednisone 20 mg tablet 40 mg PO DAILY Qty: 8 0RF No Action omeprazole 20 MG capsule 40 mg PO DAILY ondansetron 4 mg tablet,disintegrating 4 mg PO Q8H PRN (Reason: nausea and vomiting) Qty: 10 0RF Stand Alone Forms: ED Work / School Excuse Primary Care Provider: Jude Veras Referrals: Jude Veras MD [Primary Care Provider] - 1 Week Disposition Disposition: Home, Self Care
[2022-09-12] MEDS: Albuterol 2.5 MG/3 ML VIAL.NEB. INHALATION (18:48)
[2022-09-12] MEDS: Ipratropium/Albuterol Sulfate 3 ML AMPUL.NEB INHALATION (18:48)
[2022-09-12 18:50] VITALS: PULSE 108; RESP 20
[2022-09-12] MEDS: MethylPREDNISolone 125 MG/2 ML Vial IV (18:55)
[2022-09-12 18:56] VITALS: BP 160/93; PULSE 108; RESP 29; TEMP 37; O2SAT 97
[2022-09-12 18:58] VITALS: BP 160/93; PULSE 107; RESP 28; O2SAT 95
--- NOTE | 2022-09-12 19:04 | RAD_ITS ---
STUDY: X-RAY CHEST REASON FOR EXAM: Male, 42 years old. Cough and shortness of breath. Sore throat. Achiness. TECHNIQUE: Single AP portable view of the chest. COMPARISON: November 25, 2018. FINDINGS: The lungs are clear and expanded. There is no demonstrated pleural abnormality. Normal size heart. Normal mediastinum and jovanna. Normal visualized pulmonary arteries. Normal visualized aortic arch and descending thoracic aorta. There are diffuse degenerative changes of the visualized thoracic spine. Normal visualized ribs, clavicles, and shoulders. There is no demonstrated abnormality of the visualized soft tissue structures of the upper abdomen. RAD/Chest 1 View (Portable) IMPRESSION: Degenerative changes, as described above. No demonstrated acute cardiopulmonary process. Electronically Signed: Tristan Bobo DO at 19:21 EST ,
[2022-09-12 19:09] LABS: Absolute Lymphocyte Count 1.67 X10^3/uL (0.83-4.51); Absolute Neutrophil Count 8.5 X10^3/uL (2.0-7.7); Basophil# 0.04 X10^3/uL; Basophil% 0.4 % (0-1); Eosinophils% 0.9 % (0-5); Hematocrit 48.8 % (40-54); Hemoglobin 16.4 g/dL (13.0-16.5); Lymphocyte # 1.67 X10^3/ul (0.83-4.51); Lymphocyte % 14.6 % (19-41); Mean Corp Hgb Conc 33.6 g/dL (32-36); Mean Corpuscular Hgb 30.4 pg (27.0-32.0); Mean Corpuscular Volume 90.4 fL (80-94); Mean Platelet Vol. 9.2 fl (6.2-12.0); Monocyte# 1.04 X10^3/uL; Monocyte% 9.1 % (0-10); NRBC Flagged by Analyzer 0 % (0-5); Neutrophil # 8.51 X10^3/uL (2.7-7.7); Neutrophil % 74.6 % (47-70); Platelet Count 244 K/mm3 (150-450); RBC Distribution Width CV 13.1 % (11.6-14.6); RBC Distribution Width SD 43.1 fl (35.1-43.9); White Blood Count 11.4 K/mm3 (4.4-11.0)
[2022-09-12 19:27] LABS: Anion Gap 8 (5-15); BUN 11 mg/dL (7-18); BUN/Creat Ratio 10.6 RATIO (10-20); Calcium,Total 9.1 mg/dL (8.5-10.1); Chloride 105 mmol/L (98-107); Creatinine, Serum 1.04 mg/dL (0.70-1.30); EST Glomerular Filtration Rate 82 mL/min (>60); Est Glom Filt Rate - Afr Amer 100 mL/min (>60); Glucose 118 mg/dL (74-106); Potassium 3.5 mmol/L (3.5-5.1); Sodium Level 141 mmol/L (136-145); Troponin-I HS 3 pg/mL (3.0-78.0)
[2022-09-12 20:04] VITALS: BP 145/76; PULSE 111; RESP 21; TEMP 37.4; O2SAT 91
[2022-09-12 20:57] VITALS: BP 140/73; PULSE 107; RESP 22; O2SAT 92
[2022-09-12] MEDS: Acetaminophen 500 MG Tablet 1000 MG PO (21:14)
[2022-09-12] MEDS: Albuterol Sulfate 8 gm Inhaler (60 puffs) 2 PUFF INHALATION (21:14)
== END 2022-09-12 21:19 | disposition home or self-care (01) ==
PROVIDERS: Emergency Provider Emergency Medicine; PCP Internal Medicine; Visit Provider Emergency Medicine
DX: B34.9 Viral infection, unspecified (principal); F17.210 Nicotine dependence, cigarettes, uncomplicated; K21.9 Gastro-esophageal reflux disease without esophagitis; Z79.899 Other long term (current) drug therapy
CPT/HCPCS: 71045; 80048; 84484; 85025; 87428; 93005; 94640; 96374; 99285; A4216

== ENCOUNTER 2022-09-14 06:04 | Emergency (ER) | payer MEDICAID, SELFPAY ==
[2022-09-14 06:04] VITALS: BP 158/92; PULSE 120; RESP 20; TEMP 38.3; O2SAT 98; BMI 27.4
--- NOTE | 2022-09-14 06:13 | EDS_ITS ---
HPI History of Present Illness Chief Complaint: Fever Informant: patient Narrative Narrative: Presents ED waxing waning fevers past 2 days. Cough and myalgias. No vomiting or diarrhea no urinary symptoms. Last dose of Tylenol taken 9 PM yesterday. Nonvaccinated for COVID. Denies COVID infections in the past. He was seen 2 days ago with initial symptoms chest discomfort with this negative work-up. COVID and flu was negative. Chest x-ray was negative. Cardiac work-up was negative. States mild midsternal chest discomfort with cough. Tobacco history. He was discharged with steroids for which he still taking. History of ulcerative colitis. No immunosuppressants. Prior similar symptoms: No PFSH PFSH Medical History Anxiety Colitis determined by colorectal biopsy Colorectal polyps GERD (gastroesophageal reflux disease) Ulcerative colitis Home Medications omeprazole 20 mg capsule,delayed release 40 mg PO DAILY GERD 05/17/14 [History Last Taken 12/05/17 40 MG] ondansetron 4 mg disintegrating tablet 4 mg PO Q8H PRN nausea and vomiting #10 tabs 06/06/22 [Rx Last Taken Unknown] prednisone 20 mg tablet 40 mg PO DAILY #8 tabs 09/12/22 [Rx Last Taken Unknown] Allergy/AdvReac Type Severity Reaction Status Date / Time nickel Allergy Rash Verified 09/14/22 06:09 Social History Smoking Status: Current every day smoker tobacco type: cigarettes ROS ROS ED Constitutional Constitutional ED: Reports fever(s); Denies chills or sweats Eyes Eyes: Denies change in vision ENT ENT ED: Denies dysphagia or sore throat Cardiovascular Cardiovascular: Denies chest pain, leg edema, palpitations or racing heartbeat Respiratory/Chest Respiratory/Chest: Reports cough; Denies dyspnea or dyspnea on exertion Gastrointestinal Gastrointestinal: Denies abdominal pain, diarrhea, nausea or vomiting Genitourinary Genitourinary ED: Denies dysuria, hematuria or urinary frequency Musculoskeletal Musculoskeletal: Reports myalgias; Denies back pain, extremity pain or neck pain Integumentary Denies rash or wounds Neurologic Neurologic: Denies headache(s), paresthesias or weakness EXAM Physical Exam Const Vital Signs: 09/14/22 06:04 Temperature 101.0 F H Temperature Source Temporal Pulse Rate 120 H Respiratory Rate 20 H Blood Pressure 158/92 H Blood Pressure Mean 114 Pulse Ox 98 Oxygen Delivery Method Room Air Positive well nourished and well developed Constitutional Narrative: Nontoxic, well-appearing General Appearance ED: well developed and NAD HEENT Reports dry mucous membranes normocephalic and atraumatic Mouth ED: Yes dry mucous membranes Mouth: dry mucous membranes Eyes PERRL, EOMs intact bilaterally and conjunctivae normal General Eye ED: Yes normal appearance of both eyes Neck no lymphadenopathy and supple General: Negative for tenderness Chest Wall Chest: Negative for tenderness Resp normal respiratory effort and normal air movement Effort and Inspection: symmetric chest movement; Negative for respiratory distress Cardio regular rhythm and no murmurs Rate: tachycardic Peripheral Pulses: pulses 2+ throughout GI normal to inspection, nondistended, normoactive bowel sounds and non-tender Palpation: Negative for guarding or rebound tenderness present Back/Spine no CVA tenderness and no thoracic nor lumbar tenderness Extremity normal to inspection General Extremety ED: Negative for edema or tenderness General Extremity: Negative for edema Neuro oriented x3 and no sensory deficits noted Sensorium / Orientation: awake and alert Skin no rashes or lesions noted and no wounds MDM MDM MDM Narrative Medical decision making narrative: Patient febrile in the ED temp 1 1 pulse was 120. 2 out of 4 SIRS with mild cough clinically looks well and nontoxic with slight dry mucosal membranes. Clinically not septic. He has no vomiting or diarrhea. Work-up 2 days ago however discussed a possible false negative from COVID and influenza. He is given Tylenol, will avoid NSAIDs due to history of ulcerative colitis. We will recheck COVID influenza. He is given oral fluids in the ED. 0700: COVID-negative. However returned positive for influenza A. Discussed with patient likely false negative 2 days ago. He is tolerating oral fluid intake. He remains clinically stable nontoxic. Patient on the third day of symptoms history of ulcerative colitis. Discussed Tamiflu option however discussed side effects, he declines at this time. He will continue oral fluids at home Tylenol as needed. He will follow-up as an outpatient. Return precautions. All questions were answered. Discharge Plan Triage Chief Complaint: Fever ED Provider: Cleve Mckinley Dx/Rx/DC Orders Clinical Impression: Fever, Viral syndrome, History of ulcerative colitis, Influenza A Instructions: ED Fever Control (Adult), ED Influenza (Adult) Prescriptions: No Action omeprazole 20 MG capsule 40 mg PO DAILY ondansetron 4 mg tablet,disintegrating 4 mg PO Q8H PRN (Reason: nausea and vomiting) Qty: 10 0RF prednisone 20 mg tablet 40 mg PO DAILY Qty: 8 0RF Primary Care Provider: Jude Veras Referrals: Jude Veras MD [Primary Care Provider] - 3-5 Days if not improving Activity Restrictions/Additional Instructions: Positive for influenza A. He had a false negative influenza 2 days ago. COVID- negative. Continue oral fluids for hydration at home. Tylenol every 6 hours as needed. Follow-up with your doctor. Return if any worsening symptoms. Disposition Disposition: Home, Self Care
[2022-09-14] MEDS: Acetaminophen 500 MG Tablet 1000 MG PO (06:19)
[2022-09-14 07:25] VITALS: BP 118/74; PULSE 79; RESP 16; TEMP 37.9; O2SAT 96
== END 2022-09-14 07:29 | disposition home or self-care (01) ==
PROVIDERS: Emergency Provider Emergency Medicine; PCP Internal Medicine; Visit Provider Emergency Medicine
DX: J10.1 Influenza due to other identified influenza virus with other respiratory manifestations (principal); B34.9 Viral infection, unspecified; F17.210 Nicotine dependence, cigarettes, uncomplicated; Z20.822 Contact with and (suspected) exposure to COVID-19; R50.9 Fever, unspecified; Z79.52 Long term (current) use of systemic steroids
CPT/HCPCS: 87428; 99283

== ENCOUNTER → 2022-12-08 | Outpatient (CLI) | payer MEDICAID, SELFPAY ==
--- NOTE | 2022-12-08 11:00 | RAD_ITS ---
STUDY: X-RAY - LUMBAR SPINE REASON FOR EXAM: Male, 42 years old. Pain. Spinal injury. TECHNIQUE: 5 view(s) of the lumbar spine were obtained. COMPARISON: CT of the abdomen and pelvis, June 06, 2022. FINDINGS: Normal lumbar lordosis. There is no substantial scoliosis. There is a normal alignment of the vertebrae. There is multilevel endplate spondylosis of the lumbar vertebrae. Mild disc space narrowing at T12-L1 and L5-S1. There is no demonstrated fracture. There is no demonstrated spondylolysis of the pars interarticulares. The soft tissue structures are unremarkable. RAD/L/S Spine Min 4 Views IMPRESSION: Stable degenerative changes of the lumbar spine. Electronically Signed: Tristan Bobo DO at 17:30 EST ,
[2022-12-08 11:25] LABS: Erythrocyte Sedimentation Rate 3 mm/hr (0-20)
[2022-12-08 11:30] LABS: Absolute Neutrophil Count 9.6 X10^3/uL (2.0-7.7); Basophil# 0.04 X10^3/uL; Basophil% 0.3 % (0-1); Eosinophil# 0.07 X10^3/uL; Eosinophils% 0.5 % (0-5); Hematocrit 46.4 % (40-54); Hemoglobin 15.7 g/dL (13.0-16.5); Lymphocyte % 26.5 % (19-41); Mean Corp Hgb Conc 33.8 g/dL (32-36); Mean Corpuscular Hgb 30.5 pg (27.0-32.0); Mean Corpuscular Volume 90.1 fL (80-94); Mean Platelet Vol. 9.2 fl (6.2-12.0); Monocyte# 1.36 X10^3/uL; NRBC Flagged by Analyzer 0 % (0-5); Neutrophil # 9.55 X10^3/uL (2.7-7.7); Platelet Count 256 K/mm3 (150-450); RBC Distribution Width CV 13.2 % (11.6-14.6); RBC Distribution Width SD 43.4 fl (35.1-43.9); Red Blood Count 5.15 M/mm3 (4.6-6.2); White Blood Count 15.1 K/mm3 (4.4-11.0)
[2022-12-08 11:56] LABS: ALB/GLOB Ratio 1.2 RATIO (0.9-2.4); AST(SGOT) 30 U/L (15-37); Alanine Aminotransfer ALT/SGPT 71 U/L (16-61); Albumin, Serum 3.7 g/dL (3.2-5.0); Alkaline Phosphatase 101 U/L (45-117); Anion Gap 6 (5-15); BUN 15 mg/dL (7-18); BUN/Creat Ratio 15.9 RATIO (10-20); CRP < 2.90 mg/L (0.0-3.0); Calcium,Total 8.9 mg/dL (8.5-10.1); Chloride 106 mmol/L (98-107); Creatinine, Serum 0.94 mg/dL (0.70-1.30); EST Glomerular Filtration Rate 92 mL/min (>60); Est Glom Filt Rate - Afr Amer 112 mL/min (>60); Globulin 3.1 g/dL (2.2-4.2); Glucose 97 mg/dL (74-106); LDH 187 U/L (87-241); Potassium 3.5 mmol/L (3.5-5.1); Protein, Total 6.8 g/dL (6.4-8.2); Sodium Level 140 mmol/L (136-145)
[2022-12-09 16:09] LABS: Anti-Centromere B Ab <0.2 AI (0.0-0.9); Anti-Chromatin <0.2 AI (0.0-0.9); Anti-Jo <0.2 AI (0.0-0.9); Anti-Scleroderma-70 AB <0.2 AI (0.0-0.9); RNP Ab <0.2 AI (0.0-0.9); SJOGREN'S Anti-SS-A test < 0.2 AI (0.0-0.9); SJOGREN'S Anti-SS-B test < 0.2 AI (0.0-0.9); Smith Ab <0.2 AI (0.0-0.9)
[2022-12-10 09:14] LABS: Anti-dsDNA Ab 1 IU/mL (0-9)
[2022-12-11 16:08] LABS: Endomysial Antibody IgA Negative (Negative)
[2022-12-11 21:02] LABS: Immunoglobulin A 184 mg/dL (90-386); t-Transglutaminase IgA <2 U/mL (0-3)
[2022-12-15 00:06] LABS: Albumin 3.7 g/dL (2.9-4.4); Alpha-1-Globulins 0.3 g/dL (0.0-0.4); Alpha-2-Globulins 0.7 g/dL (0.4-1.0); Cytoplasmic Ab (C-ANCA) <1:20 titer (Neg:<1:20); Gamma Globulin 0.6 g/dL (0.4-1.8); Immunoglobulin A 183 mg/dL (90-386); Immunoglobulin E 13 IU/mL (6-495); Immunoglobulin G 674 mg/dL (603-1613); Immunoglobulin M 106 mg/dL (20-172); PROEL- TOTAL PROTEIN 6.3 g/dL (6.0-8.5)
[2022-12-15 08:28] LABS: Perinuclear Ab (P-ANCA) <1:20 titer (Neg:<1:20)
== END | disposition home or self-care (01) ==
PROVIDERS: PCP Internal Medicine; Visit Provider Internal Medicine Gastroenterology
DX: K59.00 Constipation, unspecified (principal); K51.90 Ulcerative colitis, unspecified, without complications
CPT/HCPCS: 36415; 72110; 80053; 82784; 82785; 83516; 83615; 84165; 85025; 85652; 86140; 86225; 86235; 86255; 86256; 86334

== ENCOUNTER 2023-02-20 10:13 | Day surgery (SDC) | payer MEDICAID, SELFPAY ==
[2023-02-20 10:32] VITALS: BP 136/95; PULSE 85; RESP 16; TEMP 36.8; O2SAT 97; BMI 28.9
[2023-02-20] MEDS: Lactated Ringers 1,000 ML 15 ML IV (10:37)
--- NOTE | 2023-02-20 11:58 | PCM.HP.BLA ---
History and Physical Date of Admission: 02/20/23 42 M who presents to the office today for Initial consult. [facility] anxiety Ulcerative colitis diagnosed by Dr. Velez in 2002; then followed by Dr. Dominguez. Asacol utilized but reports he could not break it down and medication changed to another that he cannot recall. [facility] ED 01.10.15 for abdominal pain for 2-3 days with history of previously diagnosed UC. Established with [facility] with colonoscopy later that week. CT abd/pel?with borderline/mild splenomegaly; distended stomach, contrast; small bowel mucosal prominence/thickening of LUQ with mild dilation of some loops; colon without signs of UC. Question of infectious enteritis raised. [facility] established 2014 for RLQ pain with colonoscopy performed. In 2014 he was having difficulty with BM every 2-3 days, treated with lactulose; Colitis treated with pentasa; GERD treated with Prilosec; Dicyclomine used to abdominal pain with effectiveness. ?Colonoscopy 02.01.15?with small bowel pathology without abnormality. Colon biopsy chronic quiescent colitis without granulomas or dysplasia. [facility] ED 02.09.21 with abdominal pain with concern for appendicitis (McBurney?s point +), diverticulitis, UC exacerbation. Imaging performed without acute finding and discharged home. CT abd/pel [facility] abd pain 02.09.21?normal spleen, normal bowel. No acute/chronic findings. [facility] ED 06.06.22 with abdominal pain and nausea without emesis. No acute/chronic finding during workup and discharged with medication for nausea and cramping. ?CT abd/pel [facility] abd pain 06.06.22?without acute/chronic findings. [facility] ED 12.04.22?ED note unavailable. Reports he presented to abdominal pain. Discharged with steroids. ?Biochemical workup?CBC, CMP, amylase, lipase, CRP, ESR?CT abd/pel?fatty liver infiltration. Mild degenerative changes of spine. No acute/chronic abnormalities. *[facility] established 12.08.22 following ED presentation. Prednisone 20mg have not made a difference in his abdominal pain; they are however making him feel unwell. BM every two days with hard stools and incomplete evacuation, denies medications for. When he has a BM he has the sensation that he needs to go, but does not always have the sensation of evacuation. Reflux, he uses omeprazole 40mg QD and this is typically well. Internal hemorrhoids which do bother him. Reports yesterday he had some chest pain with extension into his L axillary which lasted 5 minutes and spontaneously resolved. ROS Const Constitutional: No anorexia, fatigue, fever(s), weight change or sleep problems Eyes Eyes: No change in vision ENT ENT: No abnormal hearing, difficulty swallowing, mouth lesions, tongue swelling or throat swelling Resp Respiratory: No cough or shortness of breath Cardio Cardiology: No chest pain at rest, chest pain with exertion, shortness of breath or dyspnea on exertion Gastro GI: No difficulty swallowing Genitourinary Male: No difficulty urinating or burning urination Musc Musculoskeletal: No joint pain, joint swelling, muscle weakness or decreased muscle mass Skin Skin: No hair loss in leg, yellowing of the eye, itchy eyes, rash, skin ulcer or skin swelling Neuro Neurology: No abnormal hearing, abnormal movements, confusion, unsteady gait/balance or memory loss Psych Psychiatric: No anxiety, No confusion and No memory loss Endo Endocrine: No fatigue or weight change Aller/Imm Allergy/Immunologic: No itchy eyes, throat swelling or tongue swelling Miles/Lymp Hematologic/Lymphatic: No easy bleeding, easy bruising or enlarged lymph nodes Exam Const General: cooperative and comfortable Nutritional Appearance: average body habitus and well nourished [facility] Head: normal to inspection Ears: hearing grossly normal bilaterally Nose: external nose normal Face and sinus: normal facial exam Mouth: oral mucosae normal Throat: posterior oropharynx normal Eyes General: appearance normal, both eyes and all related structures Neck Neck: normal visual inspection Chest Chest palpation & inspection: normal inspection of the chest and normal palpation of entire chest wall Resp Effort & Inspection: normal respiratory effort Auscultation: Bilateral: Clear to Auscultation Cardio Palpation: normal PMI Rate: regular rate Rhythm: regular rhythm GI Inspection: normal to inspection Auscultation: normal bowel sounds Percussion: normal to percussion Palpation: no hepatosplenomegaly Skin General: no rashes or lesions noted Neuro General: patient alert Extrem General: normal to inspection Psych Affect: normal affect Quality Reporting Tobacco Screening ([facility]) Smoking Status: Current every day smoker Assessment and Plan Assessment and Plan (1) Constipation: ?Status:?Chronic ?Plan: Differential diagnosis for his chronic idiopathic constipation does include IBS with constipation, burning ulcerative colitis, slow transit constipation, pelvic floor dysfunction.? He is suffering from some back pain which could be contributing to his bowel transit time and evacuation issues.? He may need anorectal manometry.? We will perform a colonoscopy to evaluate his lower GI tract and to examination of the anorectal area under anesthesia.? We will also get a plain x-ray of the spine due to his history of low back trauma.? He did not have severe anorectal abnormalities but he did have some paresthesia.? He has no history of recent infection.? He denies any recent vaccinations.? He has no numbness or paresthesias going up his spine or in his extremities it is mostly locally.? I did not palpate any problems with his sacrum or coccyx.? He had decreased but normal tone. (2) Ulcerative colitis: ?Status:?Chronic ?Plan: Diagnosed with ulcerative colitis back in 2002 and he was on 5-ASA therapy for approximately 4 years intermittently.? He is taking Pentasa.? He is never taken immunomodulators or anti-TNF or IL 23 inhibitor.? We will get inflammatory markers, ESR, CRP and IBD SGI testing. (3) GERD (gastroesophageal reflux disease): ?Status:?Acute ?Plan: He also has a history of GERD without esophageal dysphagia.? We will perform an upper endoscopy prior to him undergoing colonoscopy.? He was explained alternatives, risk, benefits including outstanding bleeding, infection, sepsis, perforation, need for emergent surgery .? He will have an ASA of 1. ? ? ? Orders: Orders L/S Spine Min 4 Views Today K51.90 - Ulcerative colitis, unspecified, without complications, K59.00 - Constipation, unspecified ? Comprehensive Metabolic Profil Today K51.90 - Ulcerative colitis, unspecified, without complications, K59.00 - Constipation, unspecified ? CRP Today K51.90 - Ulcerative colitis, unspecified, without complications, K59.00 - Constipation, unspecified ? LDH Today K51.90 - Ulcerative colitis, unspecified, without complications, K59.00 - Constipation, unspecified ? CBC W/Diff, Automated Today K51.90 - Ulcerative colitis, unspecified, without complications, K59.00 - Constipation, unspecified ? Erythrocyte Sed Rate Today K51.90 - Ulcerative colitis, unspecified, without complications, K59.00 - Constipation, unspecified ? JERMAIN Comprehensive Panel Today K51.90 - Ulcerative colitis, unspecified, without complications, K59.00 - Constipation, unspecified ? ANCA Today K51.90 - Ulcerative colitis, unspecified, without complications, K59.00 - Constipation, unspecified ? Celiac Disease Profile Today K51.90 - Ulcerative colitis, unspecified, without complications, K59.00 - Constipation, unspecified ? Immunoglobulins G/A/M/E Today K51.90 - Ulcerative colitis, unspecified, without complications, K59.00 - Constipation, unspecified ? KO + Protein Elect, Serum Today K51.90 - Ulcerative colitis, unspecified, without complications, K59.00 - Constipation, unspecified ? Miscellaneous Lab Procedure Today K51.90 - Ulcerative colitis, unspecified, without complications, K59.00 - Constipation, unspecified ? Medications: New linaclotide (Linzess) 72 mcg? PO DAILY 30 caps 1RF ? ? I have examined the patient and the H&P has been reviewed. There are no clinical changes since date of exam.
--- NOTE | 2023-02-20 12:00 | COLBX_PTH ---
PATIENT: ALBERT BENTON LOC: [facility] U#:[id number] AGE/SX: 42/M ROOM: RE02/20/[address]: Dr. Qamar Childs DO : 1980 BED: DIS: 02/20/2023 SPEC #: [id number] RECD: 02/21/23 14:35 STATUS: VARINDER DORA #: [id number] KATH: 02/20/23 12:[address]: Qamar Childs DEPT: SURGICAL PATHOLOGY RECD BY: Cornell Hughes ENTERED: 02/21/23 10:15 SP TYPE: COLON BX OTHR DR: Dr. Jude Veras MD Tissues: A - Duodenum, NOS B - Gastric mucous membrane C - Esophagus, NOS D - COLON BIOPSY Procedures: Special Stain Group II Surgery Specimen Level IV Alcian Blue/PAS (control) HEADER OPERATION: Colonoscopy, [place] with biopsy [place] [place] PRE-OP DIAGNOSIS: Chronic constipation, ulcerative colitis TISSUE SUBMITTED: A ? Duodenum biopsy, B ? Gastric body biopsy, C ? Distal esophagus biopsy, D ? Random colon biopsy MICROSCOPIC DIAGNOSIS A. Duodenum, biopsy: No pathologic change. B. Gastric body, biopsy: Mild chronic inflammation. See comment. C. Distal esophagus, biopsy: Fragments of gastric mucosa with mild chronic inflammation. No evidence of goblet cell metaplasia. See comment. D. Colon, random biopsy: No pathologic change. AM:enzo 02/22/2023 COMMENT B. The results of immunohistochemistry for Helicobacter pylori will be reported separately ([id number]). C. Alcian blue/PAS stain with matched control supports the above diagnosis. MICROSCOPIC DESCRIPTION Slides are reviewed. GROSS DESCRIPTION A - Received in fixative is one container labeled with the patient's name and designated duodenum biopsy. The specimen consists of multiple irregular fragments of light white soft tissue that in aggregate measure 1.0 x 0.5 x 0.1 cm. The specimen is totally submitted in one cassette. B - Received in fixative is one container labeled with the patient's name and designated gastric body biopsy. The specimen consists of multiple irregular fragments of light white soft tissue that in aggregate measure 1.3 x 0.3 x 0.1 cm. The specimen is totally submitted in one cassette. C - Received in fixative is one container labeled with the patient's name and designated distal esophagus biopsy. The specimen consists of one irregular fragment of light white soft tissue that measures 0.5 x 0.4 x 0.1 cm. The specimen is totally submitted in one cassette. D - Received in fixative is one container labeled with the patient's name and designated random colon biopsy. The specimen consists of one irregular fragment of light white soft tissue that measures 1.8 x 0.5 x 0.1 cm. The specimen is totally submitted in one cassette. / SJ:rg 02/21/2023 TC:3 CPT: 43667 x4, 76707
--- NOTE | 2023-02-20 12:00 | IMM_PTH ---
PATIENT: ALBERT BENTON LOC: [facility] U#:[id number] AGE/SX: 42/M ROOM: RE02/20/[address]: Dr. Qamar Childs DO : 1980 BED: DIS: 02/20/2023 SPEC #: [id number] RECD: 02/21/23 13:17 STATUS: VARINDER DORA #: [id number] KATH: 02/20/23 12:[address]: Qamar Childs DEPT: IMMUNOHISTOCHEMISTRY RECD BY: Mimi Dao ENTERED: 02/21/23 13:17 SP TYPE: IMMUNO OTHR DR: Dr. Jude Veras MD Tissues: B - Stomach, NOS Procedures: H Pylori (initial) PHYSICIAN & INSTITUTION [place] [id number] SPECIMEN INFORMATION: Tissue Source: B ? Gastric body Clinical Info: Chronic constipation, ulcerative colitis Specimen Number: [id number] CPT code: 52881 METHODOLOGY: Deparaffinized sections of prefer/formalin-fixed tissue or PAP/DQ stained slides are incubated with monoclonal/polyclonal antibodies/oligonucleotide probes. Localization is made via biotin free immunoperoxidase method. Appropriate controls are performed and reacted as expected. Results on target cell population are indicated in the following table: RESULTS: ANTIBODY / CLONE RESULT Block B H Pylori (polyclonal) negative These tests were developed and their performance characteristics determined by [facility]. They may not have been cleared or approved by the U.S. Food and Drug Administration. The FDA has determined that such clearance or approval is not necessary. The above immunohistochemical/dualISH markers are ordered and reviewed by the Pathologist. INTERPRETATION: B. Gastric body, biopsy: Negative for Helicobacter pylori organisms. AM:enzo 02/22/2023
[2023-02-20 12:42] VITALS: BP 111/74; BP 136/95; PULSE 78; RESP 16; TEMP 36.6; O2SAT 94
[2023-02-20 12:45] VITALS: BP 117/83; BP 136/95; PULSE 84; RESP 16; O2SAT 94
--- NOTE | 2023-02-20 12:46 | OP.EGD_ITS ---
Patient Name: Maurice Golden Procedure Date: 02/20/2023 12:01 PM Date of : 1980 Age: 42 Procedure: Upper GI endoscopy Indications: Epigastric abdominal pain, Failure to respond to medical treatment Providers: Qamar Childs DO Referring MD: Qamar Childs DO Medicines: Monitored Anesthesia Care Patient Profile: This is a 42 year old male. Refer to note in patient chart for documentation of history and physical. Patient has symptoms of chronic epigastric abdominal pain and chronic dyspepsia. Complications: No immediate complications. Procedure: Pre-Anesthesia Assessment: - Prior to the procedure, a History and Physical was performed, and patient medications and allergies were reviewed. The risks and benefits of the procedure and the sedation options and risks were discussed with the patient. All questions were answered and informed consent was obtained. Patient identification and proposed procedure were verified by the physician. Mental Status Examination: normal. Respiratory Examination: clear to auscultation. Prophylactic Antibiotics: The patient does not require prophylactic antibiotics. Prior Anticoagulants: The patient has taken no previous anticoagulant or antiplatelet agents. ASA Grade Assessment: II - A patient with mild systemic disease. After reviewing the risks and benefits, the patient was deemed in satisfactory condition to undergo the procedure. The anesthesia plan was to use monitored anesthesia care (MAC). Immediately prior to administration of medications, the patient was re-assessed for adequacy to receive sedatives. The heart rate, respiratory rate, oxygen saturations, blood pressure, adequacy of pulmonary ventilation, and response to care were monitored throughout the procedure. The physical status of the patient was re-assessed after the procedure. After obtaining informed consent, the endoscope was passed under direct vision. Throughout the procedure, the patient's blood pressure, pulse, and oxygen saturations were monitored continuously. The Colonoscope was introduced through the mouth, and advanced to the second part of duodenum. The upper GI endoscopy was accomplished without difficulty. The patient tolerated the procedure well. Scope In: 12:16:33 PM Scope Out: 12:23:04 PM Total Procedure Duration Time 0 hours 6 minutes 31 seconds Findings: The Z-line was irregular and was found 38 cm from the incisors. Biopsies were taken with a cold forceps for histology. Verification of patient identification for the specimen was done. Estimated blood loss was minimal. Patchy mildly erythematous mucosa without bleeding was found in the gastric body. Patchy mildly erythematous mucosa without active bleeding and with no stigmata of bleeding was found in the first portion of the duodenum and in the second portion of the duodenum. Biopsies were taken with a cold forceps for histology. Verification of patient identification for the specimen was done. Estimated blood loss was minimal. Impression: - Z-line irregular, 38 cm from the incisors. Biopsied. - Erythematous mucosa in the gastric body. - Erythematous duodenopathy. Biopsied. Recommendation: - Discharge patient to home. - Resume previous diet. - Continue present medications. - Await pathology results. Procedure Code(s): --- Professional --- 35943, Esophagogastroduodenoscopy, flexible, transoral; with biopsy, single or multiple CPT copyright 2017 [employer]. All rights reserved. The codes documented in this report are preliminary and upon short story writer review may be revised to meet current compliance requirements. Qamar Childs DO 02/20/2023 12:45:45 PM This report has been signed electronically. Number of Addenda: 0 Note Initiated On: 02/20/2023 12:01 PM
--- NOTE | 2023-02-20 12:47 | OP.CCLET_ITS ---
02/20/2023 Jude Veras [address] [place] [address] Re : Upper GI endoscopy procedure for Mauricechris Golden Dear Dr. Veras This procedure was performed on Monday, February 20, 2023. My impressions and recommendations are as follows: Impressions : - Z-line irregular, 38 cm from the incisors. Biopsied. - Erythematous mucosa in the gastric body. - Erythematous duodenopathy. Biopsied. Recommendations : - Discharge patient to home. - Resume previous diet. - Continue present medications. - Await pathology results. My findings are described in the full procedure note, which is enclosed. If I can be of further assistance, please feel free to contact me at . Sincerely, Qamar Childs, 02/20/2023 12:45:45 PM This report has been signed electronically.
[2023-02-20 12:50] VITALS: BP 117/83; BP 136/95; PULSE 74; RESP 16; O2SAT 94
--- NOTE | 2023-02-20 12:51 | OP.COLON_ITS ---
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 Refer to note in patient chart for documentation of history and physical. Patient has symptoms of chronic epigastric abdominal pain and chronic dyspepsia. Last Colonoscopy: date unknown. Unable to locate last colonoscopy report. Complications: No immediate complications. Procedure: Pre-Anesthesia Assessment: - Prior to the procedure, a History and Physical was performed, and patient medications and allergies were reviewed. The risks and benefits of the procedure and the sedation options and risks were discussed with the patient. All questions were answered and informed consent was obtained. Patient identification and proposed procedure were verified by the physician. Mental Status Examination: normal. Respiratory Examination: clear to auscultation. Prophylactic Antibiotics: The patient does not require prophylactic antibiotics. Prior Anticoagulants: The patient has taken no previous anticoagulant or antiplatelet agents. ASA Grade Assessment: II - A patient with mild systemic disease. After reviewing the risks and benefits, the patient was deemed in satisfactory condition to undergo the procedure. The anesthesia plan was to use monitored anesthesia care (MAC). Immediately prior to administration of medications, the patient was re-assessed for adequacy to receive sedatives. The heart rate, respiratory rate, oxygen saturations, blood pressure, adequacy of pulmonary ventilation, and response to care were monitored throughout the procedure. The physical status of the patient was re-assessed after the procedure. After I obtained informed consent, the scope was passed under direct vision. Throughout the procedure, the patient's blood pressure, pulse, and oxygen saturations were monitored continuously. The Colonoscope was introduced through the anus and advanced to the cecum, identified by appendiceal orifice and ileocecal valve. The colonoscopy was performed without difficulty. The patient tolerated the procedure well. The quality of the bowel preparation was poor. Scope In: 12:25:46 PM Scope Withdrawal Time 0 hours 6 minutes 50 seconds Scope Out: 12:36:45 PM Total Procedure Duration Time 0 hours 10 minutes 59 seconds Findings: The perianal and digital rectal examinations were normal. A few small-mouthed diverticula were found in the recto-sigmoid colon and sigmoid colon. A large amount of stool was found in the entire colon, precluding visualization. Lavage of the area was performed, resulting in incomplete clearance with continued poor visualization. Biopsies were taken with a cold forceps for histology. Verification of patient identification for the specimen was done. Estimated blood loss was minimal. Impression: - Preparation of the colon was poor. - Diverticulosis in the recto-sigmoid colon and in the sigmoid colon. - Stool in the entire examined colon. - No specimens collected. Recommendation: - Discharge patient to home. - Resume previous diet. - Continue present medications. - Await pathology results. - Repeat colonoscopy in 4 months because the bowel preparation was poor. Procedure Code(s): --- Professional --- 50670, Colonoscopy, flexible; with biopsy, single or multiple CPT copyright 2017 [employer]. All rights reserved. The codes documented in this report are preliminary and upon veneer production machine operator review may be revised to meet current compliance requirements. Qamar Childs DO 02/20/2023 12:51:20 PM This report has been signed electronically. Number of Addenda: 0 Note Initiated On: 02/20/2023 12:23 PM
--- NOTE | 2023-02-20 12:52 | OP.CCLET_ITS ---
02/20/2023 Jude Veras [address] [place] [address] Re : Colonoscopy procedure for Maurice Golden Dear Dr. Veras This procedure was performed on Monday, February 20, 2023. My impressions and recommendations are as follows: Impressions : - Preparation of the colon was poor. - Diverticulosis in the recto-sigmoid colon and in the sigmoid colon. - Stool in the entire examined colon. - No specimens collected. Recommendations : - Discharge patient to home. - Resume previous diet. - Continue present medications. - Await pathology results. - Repeat colonoscopy in 4 months because the bowel preparation was poor. My findings are described in the full procedure note, which is enclosed. If I can be of further assistance, please feel free to contact me at . Sincerely, Qamar Childs, 02/20/2023 12:51:20 PM This report has been signed electronically.
[2023-02-20 12:55] VITALS: BP 107/75; BP 136/95; PULSE 75; RESP 16; O2SAT 94
[2023-02-20 12:56] VITALS: BP 112/76; BP 136/95; PULSE 74; RESP 16; TEMP 36.9; O2SAT 94
== END 2023-02-20 13:26 | disposition home or self-care (01) ==
LOC: EN 10:14 → AC 10:16
PROVIDERS: PCP Internal Medicine; Referring Provider Internal Medicine; Visit Provider Internal Medicine Gastroenterology
PROC: 0DJD8ZZ Inspection of Lower Intestinal Tract, Via Natural or Artificial Opening Endoscopic (ICD-10-PCS; CPT 45378; principal; 2023-02-20 11:55)
DX: K57.30 Diverticulosis of large intestine without perforation or abscess without bleeding (principal); K51.90 Ulcerative colitis, unspecified, without complications; F17.200 Nicotine dependence, unspecified, uncomplicated; R10.13 Epigastric pain; K21.9 Gastro-esophageal reflux disease without esophagitis; K59.00 Constipation, unspecified
CPT/HCPCS: 43239; 45380; 88305; 88313; 88342; J7120; J2405

== ENCOUNTER → 2023-08-15 | Outpatient (CLI) | payer MEDICAID, SELFPAY ==
--- NOTE | 2023-08-15 11:25 | RAD_ITS ---
STUDY: X-RAY - ABDOMEN/PELVIS REASON FOR EXAM: Male, 43 years old. abd pain TECHNIQUE: Single AP view of the abdomen / pelvis. COMPARISON: None. FINDINGS: Normal visualized lung bases. There is an unremarkable bowel gas pattern. There is no demonstrated free abdominal air. The visualized liver, spleen and kidneys are grossly normal in size and morphology. Normal soft tissue structures. Normal visualized osseous structures. RAD/Abdomen Single View IMPRESSION: Normal x-ray examination of the abdomen and pelvis. Electronically Signed: Bob Baker MD at 17:29 EDT ,
== END | disposition home or self-care (01) ==
LOC: RAD 11:25
PROVIDERS: PCP Internal Medicine; Referring Provider Internal Medicine Gastroenterology; Visit Provider Internal Medicine Gastroenterology
DX: R10.9 Unspecified abdominal pain (principal)
CPT/HCPCS: 74018

== ENCOUNTER 2024-09-30 07:27 | Emergency (ER) | payer BC, SELFPAY ==
[2024-09-30 07:28] VITALS: BP 120/90; PULSE 73; RESP 14; TEMP 36.7; O2SAT 99; BMI 28.7
--- NOTE | 2024-09-30 07:44 | EX.ED.DYSGE1 ---
HPI History of Present Illness Chief Complaint: Weakness Informant: patient Narrative Narrative: 44-year-old male presenting to the emergency room with a chief complaint of I just do not feel right. Patient states that he woke this morning not feeling very well. He states that he really cannot describe it just that he does not feel his normal self. He states he has been treated for dental infection and taking some unknown antibiotic. He notes that he has ulcerative colitis but he has not been able to have a bowel movement in the past couple days. No nausea vomiting. No cough runny nose sore throat. He does note dry mouth urinary frequency. Denies any significant rashes or urticaria. No body aches fever or arthralgias. Last night he states he had some low back pain. He denies any charley horses/muscle spasms. Patient states that his primary care doctor told him that he was prediabetic in the past. [facility] Medical History Tooth infection Wears glasses History of steroid therapy Degenerative disc disease Colitis Smoker Upper back pain Recurrent dislocation, left shoulder Hemorrhoids Lower abdominal pain Colorectal polyps Anxiety GERD (gastroesophageal reflux disease) Home Medications ?Medication ?Instructions ?Recorded ?Last Taken ?Type ondansetron 4 mg disintegrating 4 mg PO Q8H PRN nausea and 06/06/22 Unknown Rx tablet vomiting #10 tabs dicyclomine 20 mg tablet 20 mg PO TID PRN abdominal pain 04/11/23 Unknown Rx #90 tabs hyoscyamine sulfate 0.125 mg tablet 0.125 mg PO BID-QID PRN dyspepsia 08/15/23 Unknown Rx #60 tabs amoxicillin 500 mg-potassium 1 tab PO BID #14 tabs 03/17/24 Unknown Rx clavulanate 125 mg tablet duloxetine 20 mg capsule,delayed 20 mg PO DAILY #30 caps 04/14/24 Unknown Rx release Allergy/AdvReac Type Severity Reaction Status Date / Time bupropion (From Wellbutrin) Allergy Intermediate Other Verified 09/30/24 07:30 varenicline (From Chantix) Allergy Intermediate Other Verified 09/30/24 07:30 nickel Allergy Rash Verified 09/30/24 07:30 Surgical History H/O umbilical hernia repair Social History Smoking Status: Current every day smoker tobacco type: cigarettes Smokeless tobacco user: chewing tobacco alcohol intake: never ROS ROS ED Constitutional Constitutional ED: Denies chills, fever(s) or weight loss Eyes Eyes: Denies change in vision or diplopia ENT ENT ED: Reports other Details: Dental infection dry mouth ; Denies ear pain, rhinorrhea or sore throat Cardiovascular Cardiovascular: Denies chest pain, orthopnea, palpitations or racing heartbeat Respiratory/Chest Respiratory/Chest: Denies cough, dyspnea or orthopnea Gastrointestinal Gastrointestinal: Denies abdominal pain, diarrhea, nausea or vomiting Genitourinary Genitourinary ED: Reports urinary frequency; Denies dysuria or hematuria Musculoskeletal Musculoskeletal: Reports back pain; Denies arthralgias or myalgias Integumentary Denies abscess or rash Neurologic Neurologic: Denies headache(s) or weakness Psychiatric Psychiatric: Denies anxiety, depression, suicidal ideation or suicidal thoughts Endocrine Endocrinology: Denies polydipsia, polyphagia or polyuria Allergic/Immunologic Allergic/Immunologic ED: Denies mouth swelling, tongue swelling or urticaria EXAM Physical Exam Const Vital Signs: 09/30/24 07:28 09/30/24 09:06 Temperature 98.1 F 98.1 F Temperature Source Oral Pulse Rate 73 75 Respiratory Rate 14 14 Blood Pressure 120/90 H 124/84 H Blood Pressure Mean 100 97 Pulse Ox 99 98 Oxygen Delivery Method Room Air Positive well nourished and well developed General Appearance ED: well developed HEENT Reports normocephalic, head/scalp atraumatic and moist mucous membranes Eyes PERRL and EOMs intact bilaterally Neck no lymphadenopathy, supple and no JVD Resp normal respiratory effort and clear to auscultation bilaterally Cardio regular rate, regular rhythm and no murmurs GI normal to inspection, nondistended, normoactive bowel sounds and non-tender Palpation: soft Back/Spine no CVA tenderness and normal ROM Extremity normal to inspection General Extremety ED: Negative for edema General Extremity: Negative for edema Neuro oriented x3 and CN's II-XII intact bilaterally Sensorium / Orientation: alert Motor Exam: strength 5/5 throughout Psych mental status grossly normal Mood & Affect: Negative for depressed or tearful Skin no rashes or lesions noted and no wounds MDM MDM MDM Narrative Medical decision making narrative: Broad-based differential diagnosis includes but not limited to viral syndrome obstipation UTI electrolyte disturbance anemia diabetes bacteremia/sepsis endocrine abnormalities Patient's white count 7.3 hemoglobin 15 platelet count two 2010.2 monocytes BMP with a glucose of 125. Urinalysis is normal. Sodium potassium within normal limits. Patient clinically appears well-hydrated. He has normal vital signs. Difficult to say the exact etiology but I am not seeing a clear emergent condition on either physical exam or laboratory analysis. Symptoms are rather vague. I explained to him that he may develop more symptoms in the next 2448 hrs. If so he is welcome to return here or follow-up with primary care History & Record Review Discussion w/independent historian: Patient Lab Data Attestation: I reviewed the patient's lab results. Labs: Laboratory Results - last 24 hr 09/30/24 09/30/24 07:50 08:03 WBC 7.3 RBC 4.79 Hgb 15.0 Hct 43.6 MCV 91.0 MCH 31.3 MCHC 34.4 RDW Std Deviation 43.8 RDW Coeff of Mihir 13.1 Plt Count 220 MPV 9.1 Immature Gran % (Auto) 0.400 Neut % (Auto) 49.4 Lymph % (Auto) 37.4 Mccormick % (Auto) 10.2 H Eos % (Auto) 1.9 Baso % (Auto) 0.7 Absolute Neuts (auto) 3.6 Absolute Lymphs (auto) 2.72 Nucleated RBC % 0 Sodium 138 Potassium 4.4 Chloride 108 H Carbon Dioxide 26.0 Anion Gap 4 L BUN 15 Creatinine 1.09 Estim Creat Clear Calc 76.16 Est GFR (MDRD) Af Amer 94 Est GFR (MDRD) Non-Af 77 BUN/Creatinine Ratio 13.8 Glucose 125 H Calcium 8.8 Urine Color Yellow Urine Clarity Sl. Cloudy Urine pH 7.0 Ur Specific [place] 1.010 Urine Protein Negative Urine Glucose (UA) Normal Urine Ketones Negative Urine Occult Blood Negative Urine Nitrite Negative Urine Bilirubin Negative Urine Urobilinogen Normal Ur Leukocyte Esterase Negative Urine RBC 0 SEEN Urine WBC 0 SEEN Ur Squamous Epith Cells 0 SEEN Urine Bacteria 0 SEEN Urine Mucus 0 SEEN Discharge Plan Triage Chief Complaint: Weakness ED Provider: Chris Tse Dx/Rx/DC Orders Clinical Impression: Fatigue, Urinary frequency Instructions: ED Weakness (Uncertain Cause) Prescriptions: No Action amoxicillin-pot clavulanate 500-125 mg tablet 1 tab PO BID Qty: 14 0RF ondansetron 4 mg tablet,disintegrating 4 mg PO Q8H PRN (Reason: nausea and vomiting) Qty: 10 0RF dicyclomine 20 mg tablet 20 mg PO TID PRN (Reason: abdominal pain) Qty: 90 0RF hyoscyamine sulfate 0.125 mg tablet 0.125 mg PO BID-QID PRN (Reason: dyspepsia) Qty: 60 2RF duloxetine 20 mg capsule,delayed release(DR/EC) 20 mg PO DAILY Qty: 30 0RF Primary Care Provider: Jude Veras Referrals: Jude Veras MD [Primary Care Provider] - As Needed Print Language: Guyanese Disposition Disposition: Home, Self Care Discharge Date/Time: 09/30/24 09:07
[2024-09-30 07:58] LABS: Absolute Lymphocyte Count 2.72 X10^3/uL (0.83-4.51); Absolute Neutrophil Count 3.6 X10^3/uL (2.0-7.7); Basophil# 0.05 X10^3/uL; Basophil% 0.7 % (0-1); Eosinophil# 0.14 X10^3/uL; Eosinophils% 1.9 % (0-5); Hematocrit 43.6 % (40-54); Lymphocyte # 2.72 X10^3/ul (0.83-4.51); Lymphocyte % 37.4 % (19-41); Mean Corp Hgb Conc 34.4 g/dL (32-36); Mean Corpuscular Hgb 31.3 pg (27.0-32.0); Mean Platelet Vol. 9.1 fl (6.2-12.0); Monocyte# 0.74 X10^3/uL; Monocyte% 10.2 % (0-10); NRBC Flagged by Analyzer 0 % (0-5); Neutrophil % 49.4 % (47-70); Platelet Count 220 K/mm3 (150-450); RBC Distribution Width CV 13.1 % (11.6-14.6); RBC Distribution Width SD 43.8 fl (35.1-43.9); Red Blood Count 4.79 M/mm3 (4.6-6.2); White Blood Count 7.3 K/mm3 (4.4-11.0)
[2024-09-30 08:06] LABS: Bacteria 0 SEEN /hpf (None Seen); Mucous, Urine 0 SEEN /hpf (<or=2+); Red Blood Cells-Urine 0 SEEN /hpf (0-5); Squamous Epithelial Cells - UA 0 SEEN /hpf (0-5); White Blood Cells 0 SEEN /hpf (0-5)
[2024-09-30 08:09] LABS: Color, Urine Yellow (Yellow); Glucose, Dipstick Normal (Normal); Ketone-Dipstick Negative (Negative); Leukocyte Esterase-Dipstick Negative /ul (Negative); Nitrite-Dipstick Negative (Negative); Occult Blood-Urine Negative /ul (Negative); Protein-Dipstick Negative (Negative); Urine Bilirubin Dipstick Negative (Negative); Urine Clarity Sl. Cloudy (Clear); Urine Urobilinogen Normal (Normal)
[2024-09-30 08:16] LABS: Anion Gap 4 (5-15); BUN 15 mg/dL (7-18); BUN/Creat Ratio 13.8 RATIO (10-20); Calcium,Total 8.8 mg/dL (8.5-10.1); Chloride 108 mmol/L (98-107); Creatinine, Serum 1.09 mg/dL (0.70-1.30); EST Glomerular Filtration Rate 77 mL/min (>60); Est Glom Filt Rate - Afr Amer 94 mL/min (>60); Estimated Creatinine Clearance 76.16 ml/min; Glucose 125 mg/dL (74-106); Potassium 4.4 mmol/L (3.5-5.1); Sodium Level 138 mmol/L (136-145)
[2024-09-30 09:06] VITALS: BP 124/84; PULSE 75; RESP 14; TEMP 36.7; O2SAT 98
== END 2024-09-30 09:07 | disposition home or self-care (01) ==
PROVIDERS: Emergency Provider Emergency Medicine; PCP Internal Medicine; Visit Provider Emergency Medicine
DX: R53.1 Weakness (principal); R53.83 Other fatigue; F41.9 Anxiety disorder, unspecified; Z79.899 Other long term (current) drug therapy; F17.210 Nicotine dependence, cigarettes, uncomplicated; R35.0 Frequency of micturition
CPT/HCPCS: 80048; 81001; 85025; 99282; A4216